=== PATIENT | male | born 1960 | race Asian ===

== ENCOUNTER 2020-09-28 11:13 | Outpatient (REF) | payer OTHER, SELFPAY ==
[2020-09-28 13:55] LABS: MANUAL DIFF FLAG NO
[2020-09-28 14:19] LABS: Basophils Percent Auto 0.2 % (0-2); Eosinophils Absolute Auto 0.4 X10*3/uL (0.0-0.4); Hematocrit 43.3 % (42-52); Imm Gran Abs Auto 0.03 X10*3/uL (0.00-0.03); Imm Gran Pct Auto 0.3 % (0.0-0.4); Lymphocytes Absolute Auto 2.7 X10*3/uL (1.2-4.9); Lymphocytes Percent Auto 29.7 % (20-40); Mean Corpuscular HGB Conc 32.3 g/dl (31.0-36.0); Mean Corpuscular Hemoglobin 26.8 pg (27.0-33.0); Mean Platelet Volume 11.9 fL (9.4-12.4); Monocytes Absolute Auto 0.9 X10*3/uL (0.1-1.2); Monocytes Percent Auto 10.3 % (2-11); Neutrophils Percent Auto 55.5 % (45-73); Platelet Count 263 X10*3/uL (160-400); Red Blood Count 5.22 X10*6/uL (4.60-5.80); White Blood Count 9.1 X10*3/uL (4.8-10.8)
[2020-09-28 14:23] LABS: Alanine Aminotransferase 25 U/L (0-40); Albumin Level 4.3 g/dL (3.5-5.0); Alkaline Phosphatase 101 U/L (39-117); Anion Gap 15 (12-20); Aspartate Amino Transferase 18 U/L (5-37); Bilirubin Total 0.3 mg/dL (0.0-1.0); Blood Urea Nitrogen 19 mg/dL (9-16); Carbon Dioxide 22 mmol/L (22-29); Chloride 105 mmol/L (96-108); Cholesterol 130 mg/dL; Estimated Glomerular Filt Rate > 60; Glucose Fasting 103 mg/dL (60-99); HDL Cholesterol 34 mg/dL; LDL Cholesterol Calculated 73 mg/dl; Potassium 4.6 mmol/L (3.3-5.1); Sodium 137 mmol/L (135-145); Total Protein 7.5 g/dL (6.5-8.0); Triglycerides 118 mg/dL
[2020-09-28 14:45] LABS: Thyroid Stimulating Hormone 3.51 uIU/mL (0.32-4.0)
== END 2020-09-28 11:14 | disposition home or self-care (01) ==
LOC: HO.HMGCLDS 11:13
PROVIDERS: PCP Internal Medicine; Visit Provider Internal Medicine
DX: Z00.00 Encounter for general adult medical examination without abnormal findings (principal); E03.9 Hypothyroidism, unspecified; E11.9 Type 2 diabetes mellitus without complications
CPT/HCPCS: 36415; 80053; 80061; 84443; 85025

== ENCOUNTER → 2020-09-30 10:57 | Outpatient (BNVA) | payer OTHER, SELFPAY | PROVIDERS: PCP Internal Medicine; Visit Provider Internal Medicine Cardiovascular Disease | DX: Z03.89 Encounter for observation for other suspected diseases and conditions ruled out (principal) | CPT/HCPCS: 93005; 99202 ==

== ENCOUNTER → 2021-02-21 13:05 | Outpatient (REF) | payer OTHER, SELFPAY ==
--- NOTE | 2021-02-21 13:08 | CA_ITS ---
Transthoracic Echocardiogram Patient (Last, First, Middle): Micky Carr, Gender: Male Date of : 1960 Age: 60 Procedure Date: 02/21/2021 Procedure Type: Transthoracic Echocardiogram Location: OP Height: 177.8 cm Weight: 99.79 kg BSA: 2.17 m2 Heart Rate: bpm BP: 104 / 56 mmHg Administration Specialist: Referring MD: Marlon Gupta MD Symptoms: Z03.89 - Encounter for observation for other suspected di... Conclusions: - Normal left ventricular size, thickness, and systolic function - E/E prime ratio is between 8 and 15 consistent with indeterminate filling pressures. - The apex segment is akinetic. - Normal right ventricular cavity size and systolic function. Findings Procedure Information The patient receives contrast. Left Ventricle Normal left ventricular size, thickness, and systolic function. The visually estimated ejection fraction is between 55-60%. There is evidence of regional wall motion abnormalities. Abnormal diastolic function is noted. Spectral Doppler is indicative of a pseudonormal filling pattern. E/E prime ratio is between 8 and 15 consistent with indeterminate filling pressures. Wall Motion Rest Echo Findings The apex segment is akinetic. Right Ventricle Normal right ventricular cavity size and systolic function. Atria Both atria are normal in size. Aortic Valve Normal aortic valve structure and function. There is no aortic valve stenosis. There is no aortic valve regurgitation. Mitral Valve Normal mitral valve structure and function. There is no mitral valve regurgitation. There is no mitral valve stenosis. Pulmonic Valve Normal pulmonic valve structure and function. There is no pulmonic valve regurgitation. Tricuspid Valve Normal tricuspid valve structure and function. There is trace tricuspid valve regurgitation. Normal right atrial pressure. There is no evidence of pulmonary hypertension. Great Vessels All visible segments of the aorta are normal in size. The visualized portions of the pulmonary artery and branches are normal. Venous The inferior vena cava is normal in size and collapses greater than 50% with inspiration. Pericardium/Pleural There is no evidence of pericardial effusion. Prior Study Comparison No prior study available for comparison. Measurements 2D Linear Measurements RVIDd: 3.05 RVIDd Index: 1.41 IVSd: 0.84 0.6-0.9/0.6-1.0 cm LVIDd: 5.36 3.9-5.3/4.2-5.9 cm LVIDd Index: 2.47 2.4-3.2/2.2-3.1 cm/m2 LVIDs: 3.37 2.0-3.6 cm LVPWd: 1.19 0.7-1.1 cm Ao Root: 2.90 2.1-3.5 cm LA Diam: 3.90 2.7-3.8/3.0-4.0 cm LAIDs Index: 1.80 1.5-2.3 cm/m2 LV Mass: 259.24 67-162/88-224 g LV Mass Index: 119.46 43-95/49-115 g/m2 LVOT Diam: 2.00 3.0+(-)1.3 cm 2D Systolic Function EF 4C: 62.10 >55% EF 2C: 68.60 >55% Mitral Valve MV Pk E: 0.92 MV PK A: 0.52 MV Decel Time: 257.00 E/A: 1.80 E'Lateral: 8.59 E'Medial: 6.09 E/E' Med: 15.10 E/E' Lat: 10.70 Aortic Valve AoV Pk Corky: 1.51 AoV Mn Corky: 0.98 AoV VTI: 0.35 AoV Pk Grad: 9.00 Aov Mn Grad: 4.00 RIGOBERTO Cont.VTI: 2.47 LVOT LVOT Pk Corky: 1.06 LVOT Mn Corky: 0.76 LVOT VTI: 0.28 LVOT Pk Grad: 4.00 LVOT Mn Grad: 3.00 LVOT Diam: 2.00 LVOT Area: 3.14 Diastolic Function MV Pk E: 0.92 MV Pk A: 0.52 E/A: 1.80 E'Medial: 6.09 E/E' Med: 15.10 E' Laterial: 8.59 E/E' Lat: 10.70 Right Ventricle TAPSE (mm): 24.00 TVS' Corky: 10.40 Tricuspid Valve TR Pk Corky: 2.50 TR Pk Grad: 25.00 RA Press: 3.00 RVSP: 28.00 Great Vessels Aorta Ao Root-2D: 2.90 2.0-3.7 cm Ao Asc: 3.00 2.1-3.4 cm Ao Arch: 2.50 Updated in Other Vendor System with Status of Final Marlon Gupta MD electronically signed on 02/22/2021 2:07:11 PM with status of Final
== END ==
LOC: HO.CARD 13:05
PROVIDERS: PCP Internal Medicine; Visit Provider Internal Medicine Cardiovascular Disease
DX: Z03.89 Encounter for observation for other suspected diseases and conditions ruled out (principal)
CPT/HCPCS: 93306; Q9957

== ENCOUNTER 2021-02-26 10:49 | Outpatient (REF) | payer OTHER, SELFPAY ==
[2021-02-26 11:17] LABS: MANUAL DIFF FLAG NO
[2021-02-26 11:20] LABS: Basophils Percent Auto 0.1 % (0-2); Eosinophils Absolute Auto 0.3 X10*3/uL (0.0-0.4); Eosinophils Percent Auto 3.4 % (0-4); Hematocrit 40.7 % (42-52); Hemoglobin 13.4 g/dl (14.0-18.0); Imm Gran Abs Auto 0.03 X10*3/uL (0.00-0.03); Imm Gran Pct Auto 0.3 % (0.0-0.4); Lymphocytes Absolute Auto 2.7 X10*3/uL (1.2-4.9); Lymphocytes Percent Auto 30.9 % (20-40); Mean Corpuscular HGB Conc 32.9 g/dl (31.0-36.0); Mean Corpuscular Hemoglobin 26.8 pg (27.0-33.0); Mean Corpuscular Volume 81.4 fL (80-98); Mean Platelet Volume 10.9 fL (9.4-12.4); Monocytes Percent Auto 11.8 % (2-11); Neutrophils Absolute Auto 4.7 X10*3/uL (2.0-8.3); Neutrophils Percent Auto 53.5 % (45-73); Platelet Count 242 X10*3/uL (160-400); Red Cell Distribution Width 13.9 % (11.0-16.0); White Blood Count 8.8 X10*3/uL (4.8-10.8)
[2021-02-26 11:41] LABS: Alanine Aminotransferase 27 U/L (0-40); Albumin Level 4.3 g/dL (3.5-5.0); Alkaline Phosphatase 100 U/L (39-117); Anion Gap 14 (12-20); Aspartate Amino Transferase 21 U/L (5-37); Bilirubin Total 0.3 mg/dL (0.0-1.0); Blood Urea Nitrogen 19 mg/dL (9-16); Calcium 9.7 mg/dL (8.4-10.2); Carbon Dioxide 22 mmol/L (22-29); Chloride 106 mmol/L (96-108); Cholesterol 131 mg/dL; Estimated Glomerular Filt Rate > 60; Glucose Fasting 120 mg/dL (60-99); HDL Cholesterol 32 mg/dL; LDL Cholesterol Calculated 78 mg/dl; Potassium 4.5 mmol/L (3.3-5.1); Sodium 137 mmol/L (135-145); Total Protein 7.6 g/dL (6.5-8.0); Triglycerides 107 mg/dL
== END 2021-02-26 10:50 | disposition home or self-care (01) ==
LOC: HO.LAB 10:49
PROVIDERS: PCP Internal Medicine; Visit Provider Internal Medicine
DX: Z00.00 Encounter for general adult medical examination without abnormal findings (principal); E11.9 Type 2 diabetes mellitus without complications; E03.9 Hypothyroidism, unspecified
CPT/HCPCS: 36415; 80053; 80061; 84443; 85025

== ENCOUNTER → 2021-03-03 12:41 | Outpatient (BNVA) | payer OTHER, SELFPAY | PROVIDERS: PCP Internal Medicine; Visit Provider Internal Medicine Cardiovascular Disease | DX: I25.10 Atherosclerotic heart disease of native coronary artery without angina pectoris (principal) | CPT/HCPCS: 99212 ==

== ENCOUNTER → 2021-10-13 14:33 | Outpatient (BNVA) | payer OTHER, SELFPAY | PROVIDERS: PCP Internal Medicine; Referring Provider Internal Medicine; Visit Provider Internal Medicine Cardiovascular Disease | DX: I25.10 Atherosclerotic heart disease of native coronary artery without angina pectoris (principal); E11.9 Type 2 diabetes mellitus without complications | CPT/HCPCS: 93005; 99212 ==

== ENCOUNTER 2022-04-04 11:19 | Outpatient (REF) | payer OTHER, SELFPAY ==
--- NOTE | ~2022-04-04 | XR_ITS ---
EXAMINATION: XR CERVICAL SPINE CLINICAL INFORMATION: Chronic cervical pain. No injury COMPARISON: None TECHNIQUE: 3 views of the cervical spine were obtained. FINDINGS: There is maintained cervical lordosis. The vertebral heights, alignment and disc heights are normal. The left bridging osteophytes at C2-C3, C4-C5, C5-C6 and C6-C7 disc levels. There is mild tilt of the head to the right side. No fracture or lytic process seen. The craniovertebral junction and the C1-C2 alignment is normal. No acute fracture, dislocation or lytic process seen. The prevertebral soft tissues are normal. XR/XR cervical spine 2V IMPRESSION: 1. Degenerative bridging osteophytes C2-C3, C4-C5, C5-C6 and C6-C7 disc levels. 2. Mild head tilt to the right likely spasm or positional. No acute fracture or dislocation seen.
[2022-04-04 11:32] LABS: MANUAL DIFF FLAG NO
[2022-04-04 12:02] LABS: Basophils Percent Auto 0.4 % (0-2); Eosinophils Absolute Auto 0.3 X10*3/uL (0.0-0.4); Hematocrit 42.5 % (42.0-52.0); Hemoglobin 13.8 g/dl (14.0-18.0); Imm Gran Abs Auto 0.02 X10*3/uL (0.00-0.03); Imm Gran Pct Auto 0.2 % (0.0-0.4); Lymphocytes Absolute Auto 2.8 X10*3/uL (1.2-4.9); Lymphocytes Percent Auto 31.1 % (20-40); Mean Corpuscular HGB Conc 32.5 g/dl (31.0-36.0); Mean Corpuscular Hemoglobin 26.3 pg (27.0-33.0); Mean Corpuscular Volume 81.1 fL (80.0-98.0); Mean Platelet Volume 11.2 fL (9.4-12.4); Neutrophils Absolute Auto 4.8 x10*3/uL (2.0-8.3); Neutrophils Percent Auto 54.3 % (45-73); Platelet Count 235 X10*3/uL (160-400); Red Blood Count 5.24 X10*6/uL (4.60-5.80); Red Cell Distribution Width 14.2 % (11.0-16.0); White Blood Count 8.9 X10*3/uL (4.8-10.8)
[2022-04-04 12:14] LABS: Estimated Average Glucose 140 mg/dL; Hemoglobin A1c % 6.5 %
[2022-04-04 12:39] LABS: Alanine Aminotransferase 28 U/L (0-40); Albumin Level 4.2 g/dL (3.5-5.0); Alkaline Phosphatase 88 U/L (39-117); Anion Gap 14 (12-20); Aspartate Amino Transferase 19 U/L (5-37); Bilirubin Total 0.6 mg/dL (0.0-1.0); Blood Urea Nitrogen 16 mg/dL (9-16); Calcium 9.4 mg/dL (8.4-10.2); Carbon Dioxide 24 mmol/L (22-29); Chloride 103 mmol/L (96-108); Cholesterol 136 mg/dL; Estimated Glomerular Filt Rate > 60; Glucose Fasting 100 mg/dL (60-99); HDL Cholesterol 31 mg/dL; LDL Cholesterol Calculated 80 mg/dl; Potassium 4.4 mmol/L (3.3-5.1); Sodium 137 mmol/L (135-145); Total Protein 7.4 g/dL (6.5-8.0); Triglycerides 128 mg/dL
[2022-04-04 12:54] LABS: Prostate Specific Antigen Scr 0.87 ng/mL (<0.05-4.0); Thyroid Stimulating Hormone 3.97 uIU/mL (0.32-4.0)
== END 2022-04-04 11:20 | disposition home or self-care (01) ==
LOC: HO.LAB 11:19
PROVIDERS: PCP Internal Medicine; Visit Provider Internal Medicine
DX: Z00.00 Encounter for general adult medical examination without abnormal findings (principal); Z12.5 Encounter for screening for malignant neoplasm of prostate; Z13.0 Encounter for screening for diseases of the blood and blood-forming organs and certain disorders involving the immune mechanism; M54.2 Cervicalgia; E11.9 Type 2 diabetes mellitus without complications; E03.9 Hypothyroidism, unspecified; E78.5 Hyperlipidemia, unspecified; I10 Essential (primary) hypertension
CPT/HCPCS: 36415; 72040; 80053; 80061; 83036; 84153; 84443; 85025

== ENCOUNTER → 2022-10-13 14:51 | Outpatient (BNVA) | payer OTHER, SELFPAY | PROVIDERS: PCP Internal Medicine; Visit Provider Nurse Practitioner Family | DX: I25.10 Atherosclerotic heart disease of native coronary artery without angina pectoris (principal); I10 Essential (primary) hypertension; E78.5 Hyperlipidemia, unspecified; R53.83 Other fatigue; Z95.5 Presence of coronary angioplasty implant and graft | CPT/HCPCS: 93005; 99212 ==

== ENCOUNTER → 2023-03-19 09:20 | Outpatient (REF) | payer OTHER, SELFPAY ==
--- NOTE | ~2023-03-19 | NM_ITS ---
EXERCISE MYOCARDIAL PERFUSION STUDY INDICATION: Coronary artery disease, assess for ischemia TECHNIQUE: The patient was brought in for an exercise perfusion study on 03/19/2023. Patient performed exercise as per Gary protocol and was injected 35 mCi of sestamibi once target heart rate was achieved. Images were obtained using the SPECT gamma camera interlaced with the gating device. Images were obtained in supine position. Resting perfusion study was performed on 03/21/2023. Patient was administered 35 mCi of sestamibi intravenously at rest. Images were then obtained in supine position. Images were processed with the software and compared side to side in short axis, horizontal long axis and vertical long axis views. Total DLP 127mGy-cm. FINDINGS: Raw images were reviewed. The stress perfusion study showed diminished tracer uptake along the mid to distal anterior wall and adjacent apex. The gated study shows normal LV systolic function with calculated LVEF of 59%. LV cavity is normal in size. The gated study shows reduced contractility in the mid to distal part of anterior wall, apex. Resting study shows diminished tracer uptake in the mid to distal anterior wall, adjacent apex, similar to the stress acquisition. No significant change with CT attenuation correction. Gating at rest reveals similar wall motion abnormality as in stress acquisition. The findings are consistent with fixed perfusion defect in the mid to distal anterior wall and adjacent apex. No clear reversible defects. NM/NM cardiolite stress test IMPRESSION: 1. Myocardial perfusion imaging study shows prior LAD territory infarction including the mid to distal anterior wall, apex. 2. Gated LVEF is 59% during stress and 58% during rest. 3. Transient ischemic dilatation not present. EKG component of the test reported separately.
--- NOTE | 2023-03-19 10:22 | CA_ITS ---
Acquisition Time: 2023-03-19 10:26:17 Total Exercise Time: 00:10:00 Test Indications: CAD Medications: SEE H Protocol: SUSANA Max HR: 139 BPM 86% of Pred: 160 BPM Max BP: 134/070 mmHG Max Work Load: 11.7 METS Exercise stress test exercise 10 min of susana protocol achieving 85% MPHR, with mild ot moderate SOB, no chest discomfort, with isolated PACs and PVC, with normotensive response to exercise, with horizonal/downslope depression leads 2, 3, aVF, v4-v6. Breathing returned to normal with rest. Nuclear images pending. Test reviewed with Dr. Gupta. Referred By: Miguelina Brooks Overread By: Yue Baker
[2023-03-19 10:47] LABS: Alanine Aminotransferase 22 U/L (0-40); Albumin Level 4.1 g/dL (3.5-5.0); Alkaline Phosphatase 94 U/L (39-117); Anion Gap 11 (12-20); Aspartate Amino Transferase 18 U/L (5-37); Bilirubin Total 0.5 mg/dL (0.0-1.0); Blood Urea Nitrogen 16 mg/dL (9-16); Calcium 9.5 mg/dL (8.4-10.2); Carbon Dioxide 25 mmol/L (22-29); Chloride 104 mmol/L (96-108); Cholesterol 114 mg/dL (<200); Estimated Glomerular Filt Rate > 60; Glucose Random 158 mg/dL (60-115); HDL Cholesterol 31 mg/dL (>40); LDL Cholesterol Calculated 58 mg/dL (<100); Sodium 136 mmol/L (135-145); Total Protein 7.4 g/dL (6.5-8.0); Triglycerides 126 mg/dL (<150)
--- NOTE | 2023-03-19 10:49 | CA_ITS ---
Transthoracic Echocardiogram Patient (Last, First, Middle): Micky Carr, Gender: Male Date of : 1960 Age: 62 Procedure Date: 03/19/2023 Procedure Type: Transthoracic Echocardiogram Location: OP Height: 177.8 cm Weight: 90.01 kg BSA: 2.08 m2 Heart Rate: bpm BP: 124 / 80 mmHg Binding Folder Machine: Referring MD: Marlon Gupta MD Racecourse Barrier Attendant: Marlon Gupta MD Symptoms: I25.10 - Atherosclerotic heart disease of [place] coronary artery without... Study Quality: Adequate w Contrast ECG Rhythm: Sinus Conclusions: - Normal left ventricular cavity size. There is mildly increased left ventricular wall thickness. The left ventricular systolic function is low normal. The visually estimated ejection fraction is between 50-55%. - The apex segment is akinetic. - Normal right ventricular cavity size and systolic function. - The left atrium is mildly dilated. Findings Left Ventricle Normal left ventricular cavity size. There is mildly increased left ventricular wall thickness. The left ventricular systolic function is low normal. The visually estimated ejection fraction is between 50-55%. There is evidence of regional wall motion abnormalities. Abnormal diastolic function is noted. Spectral Doppler is indicative of an impaired relaxation filling pattern. E/E prime ratio is between 8 and 15 consistent with indeterminate filling pressures. Wall Motion Rest Echo Findings The apex segment is akinetic. Right Ventricle Normal right ventricular cavity size and systolic function. Atria The left atrium is mildly dilated. The right atrium is normal in size. Aortic Valve Normal aortic valve structure and function. There is no aortic valve stenosis. There is no aortic valve regurgitation. Mitral Valve The mitral valve appears normal. There is no mitral valve regurgitation. There is no mitral valve stenosis. Pulmonic Valve The pulmonic valve is likely normal. Tricuspid Valve Normal tricuspid valve structure. There is trace tricuspid valve regurgitation. Normal right atrial pressure. There is no evidence of pulmonary hypertension. Great Vessels All visible segments of the aorta are normal in size. The visualized portions of the pulmonary artery and branches are normal. Venous The inferior vena cava is normal in size and collapses greater than 50% with inspiration. Pericardium/Pleural There is no evidence of pericardial effusion. Prior Study Comparison Changes noted compared to prior study dated: 02/21/2021. LVEF 50-55% (low normal), mild LA dilation. Measurements 2D Linear Measurements IVSd: 1.11 0.6-0.9/0.6-1.0 cm LVIDd: 4.43 3.9-5.3/4.2-5.9 cm LVIDd Index: 2.13 2.4-3.2/2.2-3.1 cm/m2 LVIDs: 2.84 2.0-3.6 cm LVPWd: 1.10 0.7-1.1 cm Ao Root: 3.80 2.1-3.5 cm LA Diam: 4.00 2.7-3.8/3.0-4.0 cm LAIDs Index: 1.92 1.5-2.3 cm/m2 LV Mass: 214.05 67-162/88-224 g LV Mass Index: 102.91 43-95/49-115 g/m2 LVOT Diam: 2.20 3.0+(-)1.3 cm 2D Systolic Function EF 4C: 46.60 >55% EF 2C: 50.10 >55% EF BiP: 50.10 >55% Mitral Valve MV Pk E: 0.74 MV PK A: 0.88 MV Decel Time: 192.00 E/A: 0.80 E'Lateral: 6.74 E'Medial: 5.98 E/E' Med: 12.30 E/E' Lat: 10.90 PHT: 56.00 MVA PHT: 3.93 Decel Randolph: 3.83 Aortic Valve AoV Pk Corky: 1.35 AoV Mn Corky: 0.90 AoV VTI: 0.31 AoV Pk Grad: 7.00 Aov Mn Grad: 4.00 RIGOBERTO Cont.VTI: 3.02 LVOT LVOT Pk Corky: 1.20 LVOT Mn Corky: 0.78 LVOT VTI: 0.25 LVOT Pk Grad: 6.00 LVOT Mn Grad: 3.00 LVOT Diam: 2.20 LVOT Area: 3.80 Diastolic Function MV Pk E: 0.74 MV Pk A: 0.88 E/A: 0.80 E'Medial: 5.98 E/E' Med: 12.30 E' Laterial: 6.74 E/E' Lat: 10.90 Right Ventricle TAPSE (mm): 26.00 TVS' Corky: 12.00 Tricuspid Valve TR Pk Corky: 1.78 TR Pk Grad: 13.00 RA Press: 3.00 RVSP: 16.00 Great Vessels Aorta Ao Root-2D: 3.80 2.0-3.7 cm Ao Asc: 3.00 2.1-3.4 cm Pulmonary Valve PV Pk Corky: 0.83 Peak PV Grad: 3.00 Updated in Other Vendor System with Status of Final Marlon Gupta MD electronically signed on 03/20/2023 12:17:42 PM with status of Final
== END ==
LOC: HO.CARD 09:20
PROVIDERS: PCP Internal Medicine; Visit Provider Nurse Practitioner Family
DX: I25.10 Atherosclerotic heart disease of native coronary artery without angina pectoris (principal); I10 Essential (primary) hypertension; E78.5 Hyperlipidemia, unspecified; R53.83 Other fatigue; Z95.5 Presence of coronary angioplasty implant and graft
CPT/HCPCS: 36415; 78452; 80053; 80061; 93017; 93306; A9500; Q9957

== ENCOUNTER → 2023-03-19 10:22 | Outpatient (BNV) | payer OTHER, SELFPAY | PROVIDERS: PCP Internal Medicine; Visit Provider Nurse Practitioner | DX: I25.10 Atherosclerotic heart disease of native coronary artery without angina pectoris (principal) | CPT/HCPCS: 78452; 93016; 93018; 93306 ==

== ENCOUNTER 2023-03-20 11:28 | Outpatient (AMB) | payer OTHER, SELFPAY ==
[2023-03-20 11:32] VITALS: BP 106/62; PULSE 54; O2SAT 98; BMI 29.8
--- NOTE | 2023-03-20 11:32 | A.OFFPC_ITS ---
Vital Signs 03/20/23 11:32 Height 5 ft 10 in Weight 208 lb BMI 29.8 BP 106/62 Blood Pressure Location Lt brachial Position Sitting Pulse 54 Pulse Source Pulse Oximeter Pulse Oximetry (%) 98 Oxygen Delivery Method Room Air Intake Visit Reasons: Medication F/U Scrum Coach: Not Required per policy Accompanied by: Self / Same As Patient Allergies No Known Allergies Allergy (Verified 03/20/23 11:32) Tobacco use date assessed: 03/20/23 Dental Screening Dental Screen Date: 03/20/23 Did you have a dental visit in the last 12 months?: Yes Did you have a dental problem in the last 6 months where you did not have access to dental care?: No Was dental information given to patient?: Patient has dentist HPI Medication F/U HPI Details hyperlipidemia asthma and DM; started on metformin PFSH Medical History Obesity CAD (coronary atherosclerotic disease) Coronary artery disease (CAD) excluded Surgical History History of coronary artery stent placement Family History Mother No problems noted. Father No problems noted. Social History Housing: House Alcohol intake: never Patient Tobacco Use Status: Never used Tobacco e-Cigarette/Vaping Use: Never Used Second Hand Smoke Exposure: No service: No Current occupational status: employed Cognitive needs: No Hearing needs: No Vision needs: No Questionnaire PHQ-9 Over the last 2 weeks, how often have you been bothered by any of the following problems? 1. Little interest or pleasure in doing things: not at all 2. Feeling down, depressed, or hopeless: not at all 3. Trouble falling or staying asleep, or sleeping too much: not at all 4. Feeling tired or having little energy: not at all 5. Poor appetite or overeating: not at all 6. Feeling bad about yourself - or that you are a failure or have let yourself or your family down: not at all 7. Trouble concentrating on things, such as reading the newspaper or watching television: not at all 8. Moving or speaking so slowly that other people could have noticed. Or the opposite - being so fidgety or restless that you have been moving around a lot more than usual: not at all 9. Thoughts that you would be better off or of hurting yourself in some way: not at all Total score: 0 Source: Developed by Drs. John Vital, Sindy Saxena, Faustino Sorto and colleagues, with an educational chuy from [employer]. Thrive Questionnaire Date Thrive assessed: 03/20/23 I am a: Patient What is your living situation today?: I have a steady place to live Within the past 12 months, did the food you bought not last and you didn't have the money to get more?: Never true Within the past 12 months, did you worry whether your food would run out before you got money to buy more?: Never true Do you have trouble paying for medicines?: No Do you have trouble getting transportation to medical appointments?: No Do you have trouble paying your heating and electricity bill?: No Do you have trouble taking care of your child, family member or friend?: No Do you have trouble with day-to-day activities such as bathing, preparing meals, shopping, managing finances, etc.?: No Are you currently unemployed and looking for a job?: No Are you interested in more education?: No Please select the resources that you would like help with: None AUDIT C Alcohol Use Questionnaire (AUDIT-C) 1. How often do you have a drink containing alcohol?: Never Total Score: 0 Score Reviewed/Action Taken: Yes MARLENY-7 AMB Questionnaire MARLENY-7 Date MARLENY - 7 assessed: 03/20/23 Feeling nervous, anxious, or on edge: 0 = Not at all Not being able to stop or control worryin = Not at all Worrying too much about different things: 0 = Not at all Trouble relaxin = Not at all Being so restless that it is hard to sit still: 0 = Not at all Becoming easily annoyed or irritable: 0 = Not at all Feeling afraid as if something awful might happen: 0 = Not at all Total MARLENY-7 score (0-4 normal; 5-9 mild; 10-14 moderate; 15-21 severe): 0 Source: Developed by Drs. John Vital, Sindy Saxena, Faustino Sorto and colleagues, with an educational chuy from [employer]. Review of Systems Const Denies chills, Denies headache(s) and Denies weight loss ENT Denies headache(s) Card Denies chest pain, Denies syncope, Denies irregular heart rhythm and Denies dyspnea Resp Denies chest congestion, Denies cough and Denies dyspnea GI Denies abdominal pain, Denies change in stool character, Denies nausea and Denies vomiting Musc Denies deformity and Denies joint swelling Neuro Denies syncope and Denies headache(s) Physical exam (Primary Care) Vital Signs: Last Vital Signs Pulse 54 03/20/23 11:32 BP 106/62 03/20/23 11:32 Pulse Ox 98 03/20/23 11:32 Oxygen Delivery Method Room Air 03/20/23 11:32 BMI result Body Mass Index 29.8 Tobacco/Smoking Status: Tobacco use Status Tobacco use date assessed 03/20/23 03/20/23 11:36 Patient Tobacco Use Status Never used Tobacco 03/20/23 11:36 e-Cigarette/Vaping Use Never Used 03/20/23 11:36 PHQ-9: PHQ-9 Score PHQ-9: Total score 0 03/20/23 11:49 Thrive Assessment: Date of Thrive Assessment Date Thrive assessed 03/20/23 03/20/23 11:36 Const General: cooperative, comfortable, no acute distress and alert Neck Neck: Yes no lymphadenopathy Thyroid: Thyroid normal Resp Effort & Inspection: normal respiratory effort Auscultation: clear to auscultation bilaterally Percussion: percussion normal Cardio Jugular venous distension: no JVD Palpation: normal PMI Rate: regular rate Rhythm: regular rhythm Heart sounds: S1 normal heart sound present and S2 normal heart sound present GI Inspection: Yes normal to inspection Palpation (GI): No hepatosplenomegaly present Skin General skin exam: no rashes or lesions noted Extrem General: Yes no clubbing, cyanosis or edema Assessment and Plan Assessment & Plan (1) Hyperlipidemia: Code(s): E78.5 - Hyperlipidemia, unspecified Plan: stable; same rx (2) Asthma: Code(s): J45.909 - Unspecified asthma, uncomplicated Plan: stable; same rx (3) Type 2 diabetes mellitus with hyperlipidemia: Code(s): E11.69 - Type 2 diabetes mellitus with other specified complication; E78.5 - Hyperlipidemia, unspecified Plan: do labs Orders: Orders Thyroid Stimulating Hormone Today E03.9 - Hypothyroidism, unspecified Hemoglobin A1c Today R73.9 - Hyperglycemia, unspecified Comprehensive [place]. Panel Fast Today N28.9 - Disorder of kidney and ureter, unspecified Lipid Panel Today E78.5 - Hyperlipidemia, unspecified Complete Blood Count Auto Diff Today D64.9 - Anemia, unspecified Microalbumin, Random (w Creat) Today E11.69 - Type 2 diabetes mellitus with other specified complication, E66.01 - Morbid (severe) obesity due to excess calories Referrals Ear/Nose/Throat Referral H92.09 - Otalgia, unspecified ear Medications: New metformin 500 mg PO DAILY 90 tabs 8RF omeprazole 20 mg PO DAILY 90 tabs 8RF clotrimazole-betamethasone 1-0.05 % 1 appl topical BID 45 grams 0RF 2 weeks Coding Level of Care Code Est Pt Level 4 (61984) Diagnoses Hyperlipidemia E78.5 Asthma J45.909 Type 2 diabetes mellitus with hyperlipidemia E11.69; E78.5
== END 2023-03-20 11:52 | disposition home or self-care (01) ==
PROVIDERS: PCP Internal Medicine; Visit Provider Internal Medicine
DX: E78.5 Hyperlipidemia, unspecified (principal); J45.909 Unspecified asthma, uncomplicated; E11.69 Type 2 diabetes mellitus with other specified complication
CPT/HCPCS: 99214

== ENCOUNTER 2023-09-26 12:43 | Outpatient (AMB) | payer OTHER, SELFPAY ==
[2023-09-26 12:50] VITALS: BP 130/60; PULSE 47; BMI 30.8
--- NOTE | 2023-09-26 12:50 | A.OFFVIS_ITS ---
Intake Vital Signs 09/26/23 12:50 Height 5 ft 10 in Weight 214 lb 11.684 oz BMI 30.8 BP 130/60 Blood Pressure Location Lt brachial Position Sitting Pulse 47 L Intake Visit Reasons: f/up Intake Note: pt states that he its doing fine Roll Weigher Required: No Accompanied by: Self / Same As Patient Allergies No Known Allergies Allergy (Verified 03/20/23 11:32) Medication List - Last Reconciled 09/27/23 by Marlon Gupta MD aspirin (Adult Low Dose Aspirin) 81 mg PO DAILY 90 days atorvastatin 80 mg PO DAILY bisoprolol fumarate 5 mg PO DAILY 90 days budesonide-formoterol 160-4.5 mcg/actuation (Symbicort) 2 puffs inhalation BID budesonide-formoterol 160-4.5 mcg/actuation (Symbicort) 2 puffs inhalation BID candesartan 16 mg PO DAILY clotrimazole-betamethasone 1-0.05 % 1 appl topical BID 2 weeks metformin 500 mg PO DAILY yvttmzou-jwzsht-HE-thonzonium 3.3-3-10-0.5 mg/mL (Cortisporin-TC) 1 appl otic (ears) Q4H omeprazole 20 mg PO DAILY spironolactone 25 mg PO DAILY triamcinolone acetonide 0.5% 1 appl topical TID HPI HPI Comments History of Present Illness Details Pleasant 63-year-old gentleman who is here for f/u. In 2016 while he was in [place] he had chest pain and was taken for cardiac catheterization. He said he was initially given streptokinase but continued to have chest pain and was taken emergently for cardiac catheterization and had stent placed to the left anterior descending artery. We do not have exact details of the stent size and location of the stent. He said his ejection fraction at that time was 50% he was told that the cardiac apex does not move well. He since then has been doing well. He has been active without any symptoms. He walks daily without exertional issues in particular no chest discomfort shortness of breath. He was started on Atacand, spironolactone and bisoprolol and has been regularly taking medications. He is on Lipitor 80 mg once a day. He returns for follow-up and is complaining of some upper back achiness. This happens when he does not get enough sleep and when he is working. He is asking whether Lipitor is the cause for that. I have reassured him that Lipitor is unlikely to be the reason for his backaches. 09/26/2023: He returns for follow-up. Rochelle de la rosa is saying that he is walking 2 times a week and has no exertional complaints. He is planning to start swimming. He has been getting yearly stress test in [place] and last 1 was in June where he was able to exercise for 10 minutes on treadmill without any significant symptoms. He is complaining of some fatigue. He has slowed down somewhat during winter time but will be starting some exercise. [facility] Medical History Obesity CAD (coronary atherosclerotic disease) Coronary artery disease (CAD) excluded Surgical History History of coronary artery stent placement Family History Mother No problems noted. Father No problems noted. Social History Housing: House Alcohol intake: never Patient Tobacco Use Status: Never used Tobacco e-Cigarette/Vaping Use: Never Used Second Hand Smoke Exposure: No service: No Current occupational status: employed Cognitive needs: No Hearing needs: No Vision needs: No Review of Systems Const Denies chills, Denies fatigue, Denies fever(s), Denies frequent falls, Denies weakness, Denies weight gain and Denies weight loss ENT Denies dizziness Card Denies chest pain, Denies leg edema, Denies lightheadedness, Denies palpitations, Denies dyspnea and Denies dyspnea on exertion Resp Denies cough, Denies dyspnea and Denies dyspnea on exertion GI Denies hematochezia Musc Denies abnormal gait, Denies muscle weakness, Denies numbness, Denies radiating pain into limb and Denies tingling Neuro Denies abnormal gait, Denies dizziness, Denies frequent falls, Denies numbness, Denies tingling and Denies weakness Endo Denies fatigue and Denies palpitations Physical Exam Vital Signs: Last Vital Signs Pulse 47 L 09/26/23 12:50 BP 130/60 09/26/23 12:50 BMI result Body Mass Index 30.8 GENERAL APPEARANCE: in no acute distress, well developed, well nourished. NECK/THYROID: no carotid bruit, no jugular venous distention. SKIN: no suspicious lesions, warm and dry. HEART: no murmurs, regular rate and rhythm, S1, S2 normal. Bradycardic. LUNGS: clear to auscultation bilaterally. ABDOMEN: normal, bowel sounds present, soft, nontender, nondistended. EXTREMITIES: no clubbing, cyanosis, or edema. PERIPHERAL PULSES: equal. NEUROLOGIC: nonfocal, alert and oriented. PSYCH: mood/affect full range. Office Procedures EKG Details: sinus bradycardia 47/min, anteroseptal infarct, QTc 385 msec. [id number], Complete Assessment & Plan Assessment & Plan (1) CAD (coronary atherosclerotic disease): Code(s): I25.10 - Atherosclerotic heart disease of [place] coronary artery without angina pectoris (2) Stable angina: Code(s): I20.89 - Other forms of angina pectoris Plan Pleasant 63 year gentleman presenting for follow-up. He has background history of LAD PCI in 2016 for acute OR. He has been doing well since then. No exertional symptoms. Denying chest discomfort. His main complaint is fatigue. He is somewhat bradycardic on bisoprolol but has no dizziness or hypotension. This could be 1 potential reason for fatigued but he also has slowed down over the summertime and quite frequently this deconditioning age enough to give fatigue and shortness of breath. In any case we will arrange a exercise stress test for him in the coming months because his quite anxious that his fatigue is related with coronary disease. No changes in medications otherwise. Thank you for allowing me to participate in the care of your patient. Please fe el free to contact me if you have any questions. Orders: Orders CA stress test Today I25.10 - Atherosclerotic heart disease of [place] coronary artery without angina pectoris Coding Level of Care Code Est Pt Level 4 (92676) Diagnoses CAD (coronary atherosclerotic disease) I25.10 Stable angina I20.89 CPT Codes EKG - CPT: 37096-[id number], Complete ([id number])
== END 2023-09-26 13:32 | disposition home or self-care (01) ==
PROVIDERS: PCP Internal Medicine; Visit Provider Internal Medicine Cardiovascular Disease
DX: I25.10 Atherosclerotic heart disease of native coronary artery without angina pectoris (principal)
CPT/HCPCS: 93010; 99214

== ENCOUNTER → 2023-09-26 12:43 | Outpatient (BNVA) | payer OTHER, SELFPAY | PROVIDERS: PCP Internal Medicine; Visit Provider Internal Medicine Cardiovascular Disease | DX: I25.118 Atherosclerotic heart disease of native coronary artery with other forms of angina pectoris (principal); I10 Essential (primary) hypertension; R00.1 Bradycardia, unspecified; E66.9 Obesity, unspecified; Z68.30 Body mass index [BMI] 30.0-30.9, adult; Z98.890 Other specified postprocedural states; Z95.5 Presence of coronary angioplasty implant and graft | CPT/HCPCS: 93005; 99212 ==

== ENCOUNTER 2023-10-15 10:40 | Outpatient (REF) | payer OTHER, SELFPAY ==
[2023-10-15 11:29] LABS: Basophils Percent Auto 0.3 % (0-2); Eosinophils Absolute Auto 0.4 X10*3/uL (0.0-0.4); Hemoglobin 13.8 g/dl (14.0-18.0); Imm Gran Abs Auto 0.03 X10*3/uL (0.00-0.03); Imm Gran Pct Auto 0.3 % (0.0-0.4); Lymphocytes Absolute Auto 3.6 X10*3/uL (1.2-4.9); Lymphocytes Percent Auto 35.7 % (20-40); MANUAL DIFF FLAG NO; Mean Corpuscular HGB Conc 32.1 g/dl (31.0-36.0); Mean Corpuscular Hemoglobin 26.3 pg (27.0-33.0); Mean Corpuscular Volume 82.1 fL (80.0-98.0); Mean Platelet Volume 11.6 fL (9.4-12.4); Monocytes Absolute Auto 1.3 X10*3/uL (0.1-1.2); Monocytes Percent Auto 12.4 % (2-11); Neutrophils Absolute Auto 4.8 x10*3/uL (2.0-8.3); Neutrophils Percent Auto 47.3 % (45-73); Platelet Count 252 X10*3/uL (160-400); Red Blood Count 5.24 X10*6/uL (4.60-5.80); Red Cell Distribution Width 14.4 % (11.0-16.0); White Blood Count 10.1 X10*3/uL (4.8-10.8)
[2023-10-15 11:45] LABS: Estimated Average Glucose 131 mg/dL; Hemoglobin A1c % 6.2 % (<6.0)
[2023-10-15 12:29] LABS: Creatinine Urine 163.28 mg/dL
[2023-10-15 12:30] LABS: Alanine Aminotransferase 28 U/L (0-40); Albumin Level 4.3 g/dL (3.5-5.0); Alkaline Phosphatase 101 U/L (39-117); Anion Gap 14 (12-20); Aspartate Amino Transferase 26 U/L (5-37); Bilirubin Total 0.5 mg/dL (0.0-1.0); Blood Urea Nitrogen 20 mg/dL (9-16); Calcium 9.9 mg/dL (8.4-10.2); Carbon Dioxide 24 mmol/L (22-29); Chloride 104 mmol/L (96-108); Cholesterol 131 mg/dL (<200); Estimated Glomerular Filt Rate > 60; Glucose Fasting 102 mg/dL (60-99); HDL Cholesterol 31 mg/dL (>40); LDL Cholesterol Calculated 80 mg/dL (<100); Potassium 4.8 mmol/L (3.3-5.1); Sodium 137 mmol/L (135-145); Total Protein 8.1 g/dL (6.5-8.0); Triglycerides 100 mg/dL (<150)
[2023-10-15 12:35] LABS: Thyroid Stimulating Hormone 3.39 uIU/mL (0.32-4.0)
== END 2023-10-15 10:41 | disposition home or self-care (01) ==
LOC: HO.LAB 10:40
PROVIDERS: PCP Internal Medicine; Visit Provider Internal Medicine
DX: E03.9 Hypothyroidism, unspecified (principal); E11.69 Type 2 diabetes mellitus with other specified complication; E66.01 Morbid (severe) obesity due to excess calories; E11.65 Type 2 diabetes mellitus with hyperglycemia; E78.5 Hyperlipidemia, unspecified; N28.9 Disorder of kidney and ureter, unspecified; D64.9 Anemia, unspecified
CPT/HCPCS: 36415; 80053; 80061; 82043; 82570; 83036; 84443; 85025

== ENCOUNTER 2023-10-19 11:31 | Outpatient (AMB) | payer OTHER, SELFPAY ==
[2023-10-19 11:34] VITALS: BP 110/60; PULSE 82; O2SAT 96; BMI 30.1
--- NOTE | 2023-10-19 11:34 | MHC.PC.OV ---
Vital Signs 10/19/23 11:34 Height 5 ft 10 in Weight 210 lb BMI 30.1 BP 110/60 Blood Pressure Location Lt brachial Position Sitting Pulse 82 Pulse Source Pulse Oximeter Pulse Oximetry (%) 96 Oxygen Delivery Method Room Air Intake Visit Reasons: 6mth f/u Document Advisor Required: No Aerodynamics Professor: Not Required per policy Accompanied by: Self / Same As Patient Allergies No Known Allergies Allergy (Verified 10/19/23 11:34) Medication List - Last Reconciled 10/22/23 by Tung Camejo MD aspirin (Adult Low Dose Aspirin) 81 mg PO DAILY 90 days atorvastatin 80 mg PO DAILY bisoprolol fumarate 5 mg PO DAILY 90 days budesonide-formoterol 160-4.5 mcg/actuation (Symbicort) 2 puffs inhalation BID budesonide-formoterol 160-4.5 mcg/actuation (Symbicort) 2 puffs inhalation BID candesartan 16 mg PO DAILY clotrimazole-betamethasone 1-0.05 % 1 appl topical BID 2 weeks flash glucose scanning reader ([place] Appyle Teena 2 [place]) As directed flash glucose sensor (RF ControlsStyle Teena 2 Sensor kit) As directed metformin 500 mg PO DAILY tuqgonof-bwovnk-MG-thonzonium 3.3-3-10-0.5 mg/mL (Cortisporin-TC) 1 appl otic (ears) Q4H omeprazole 20 mg PO DAILY spironolactone 25 mg PO DAILY Tobacco use date assessed: 10/19/23 Dental Screening Dental Screen Date: 10/19/23 Did you have a dental visit in the last 12 months?: Yes Did you have a dental problem in the last 6 months where you did not have access to dental care?: No Was dental information given to patient?: Patient has dentist HPI 6mth f/u HPI Details hyperlip htn and dm; stable on rx and compliant PFSH Medical History Obesity CAD (coronary atherosclerotic disease) Coronary artery disease (CAD) excluded Surgical History History of coronary artery stent placement Family History Mother No problems noted. Father No problems noted. Social History Housing: House Alcohol intake: never Patient Tobacco Use Status: Never used Tobacco e-Cigarette/Vaping Use: Never Used Second Hand Smoke Exposure: No service: No Current occupational status: employed Cognitive needs: No Hearing needs: No Vision needs: No Questionnaire PHQ-9 Over the last 2 weeks, how often have you been bothered by any of the following problems? 1. Little interest or pleasure in doing things: not at all 2. Feeling down, depressed, or hopeless: not at all 3. Trouble falling or staying asleep, or sleeping too much: not at all 4. Feeling tired or having little energy: not at all 5. Poor appetite or overeating: not at all 6. Feeling bad about yourself - or that you are a failure or have let yourself or your family down: not at all 7. Trouble concentrating on things, such as reading the newspaper or watching television: not at all 8. Moving or speaking so slowly that other people could have noticed. Or the opposite - being so fidgety or restless that you have been moving around a lot more than usual: not at all 9. Thoughts that you would be better off or of hurting yourself in some way: not at all Total score: 0 Source: Developed by Drs. John Vital, Sindy Saxena, Faustino Sorto and colleagues, with an educational chuy from [employer] Thrive Questionnaire Date Thrive assessed: 10/19/23 I am a: Patient What is your living situation today?: I have a steady place to live Within the past 12 months, did the food you bought not last and you didn't have the money to get more?: Never true Within the past 12 months, did you worry whether your food would run out before you got money to buy more?: Never true Do you have trouble paying for medicines?: No Do you have trouble getting transportation to medical appointments?: No Do you have trouble paying your heating and electricity bill?: No Do you have trouble taking care of your child, family member or friend?: No Do you have trouble with day-to-day activities such as bathing, preparing meals, shopping, managing finances, etc.?: No Are you currently unemployed and looking for a job?: No Are you interested in more education?: No Please select the resources that you would like help with: None THRIVE Score: 0 AUDIT C Alcohol Use Questionnaire (AUDIT-C) 1. How often do you have a drink containing alcohol?: Never Total Score: 0 Score Reviewed/Action Taken: Yes MARLENY-7 AMB Questionnaire MARLENY-7 Date MARLENY - 7 assessed: 10/19/23 Feeling nervous, anxious, or on edge: 0 = Not at all Not being able to stop or control worryin = Not at all Worrying too much about different things: 0 = Not at all Trouble relaxin = Not at all Being so restless that it is hard to sit still: 0 = Not at all Becoming easily annoyed or irritable: 0 = Not at all Feeling afraid as if something awful might happen: 0 = Not at all Total MARLENY-7 score (0-4 normal; 5-9 mild; 10-14 moderate; 15-21 severe): 0 Source: Developed by Drs. John Vital, Sindy Saxena, Faustino Sorto and colleagues, with an educational chuy from [employer] Review of Systems Const Denies chills, Denies headache(s) and Denies weight loss ENT Denies headache(s) Card Denies chest pain, Denies syncope, Denies irregular heart rhythm and Denies dyspnea Resp Denies chest congestion, Denies cough and Denies dyspnea GI Denies abdominal pain, Denies change in stool character, Denies nausea and Denies vomiting Musc Denies deformity and Denies joint swelling Neuro Denies syncope and Denies headache(s) Physical exam (Primary Care) Vital Signs: Last Vital Signs Pulse 82 10/19/23 11:34 BP 110/60 10/19/23 11:34 Pulse Ox 96 10/19/23 11:34 Oxygen Delivery Method Room Air 10/19/23 11:34 BMI result Body Mass Index 30.1 Tobacco/Smoking Status: Tobacco use Status Tobacco use date assessed 10/19/23 10/19/23 11:37 Patient Tobacco Use Status Never used Tobacco 10/19/23 11:37 e-Cigarette/Vaping Use Never Used 10/19/23 11:37 PHQ-9: PHQ-9 Score PHQ-9: Total score 0 10/19/23 11:41 Thrive Assessment: Date of Thrive Assessment Date Thrive assessed 10/19/23 10/19/23 11:37 Const General: cooperative, comfortable, no acute distress and alert Neck Neck: Yes no lymphadenopathy Thyroid: Thyroid normal Resp Effort & Inspection: normal respiratory effort Auscultation: clear to auscultation bilaterally Percussion: percussion normal Cardio Jugular venous distension: no JVD Palpation: normal PMI Rate: regular rate Rhythm: regular rhythm Heart sounds: S1 normal heart sound present and S2 normal heart sound present GI Inspection: Yes normal to inspection Palpation (GI): No hepatosplenomegaly present Skin General skin exam: no rashes or lesions noted Extrem General: Yes no clubbing, cyanosis or edema Assessment and Plan Assessment & Plan (1) Type 2 diabetes mellitus with hyperlipidemia: Code(s): E11.69 - Type 2 diabetes mellitus with other specified complication; E78.5 - Hyperlipidemia, unspecified Plan: stable; same rx (2) Hypertension: Code(s): I10 - Essential (primary) hypertension Plan: stable; same rx (3) Hyperlipidemia: Code(s): E78.5 - Hyperlipidemia, unspecified Plan: stable; same rx Orders: Orders Lipid Panel Today Z13.220 - Encounter for screening for lipoid disorders Microalbumin, Random (w Creat) Today E11.69 - Type 2 diabetes mellitus with other specified complication, E66.01 - Morbid (severe) obesity due to excess calories Complete Blood Count Auto Diff Today Z13.0 - Encounter for screening for diseases of the blood and blood-forming organs and certain disorders involving the immune mechanism Comprehensive [place]. Panel Fast Today Z13.9 - Encounter for screening, unspecified Hemoglobin A1c Today R73.9 - Hyperglycemia, unspecified Medications: New flash glucose scanning reader (FreeStyle Teena 2 [place]) As directed 1 ea 0RF flash glucose sensor (FreeStyle Teena 2 Sensor kit) As directed 1 ea 8RF Coding Level of Care Code Est Pt Level 4 (21481) Diagnoses Type 2 diabetes mellitus with hyperlipidemia E11.69; E78.5 Hypertension I10 Hyperlipidemia E78.5
== END 2023-10-19 11:55 | disposition home or self-care (01) ==
PROVIDERS: PCP Internal Medicine; Visit Provider Internal Medicine
DX: E11.69 Type 2 diabetes mellitus with other specified complication (principal); E78.5 Hyperlipidemia, unspecified; I10 Essential (primary) hypertension
CPT/HCPCS: 99214

== ENCOUNTER → 2024-02-25 08:24 | Outpatient (REF) | payer OTHER, SELFPAY ==
--- NOTE | 2024-02-25 08:32 | CA_ITS ---
Acquisition Time: 2024-02-25 08:43:48 Total Exercise Time: 00:09:54 Test Indications: CP Medications: SEE H Protocol: GONSALO Max HR: 126 BPM 79% of Pred: 159 BPM Max BP: 168/060 mmHG Max Work Load: 11.0 METS Exercise stress text exercise 9 min 54 sec of Gonsalo protocol achieving approx 81% MPHR, mild ot moderate SOB, without chest pains, with isoplatated PVC, with depressing leads 1, 2, 3, aVF, V3-V6. Breathing returned to baseline with rest. Test reviewed with Dr. Hilton Referred By: Marlon Gupta Overread By: Yue Baker
[2024-02-25 10:06] LABS: Hematocrit 43.4 % (42.0-52.0); Hemoglobin 14.1 g/dl (14.0-18.0); Mean Corpuscular HGB Conc 32.5 g/dl (31.0-36.0); Mean Corpuscular Hemoglobin 26.5 pg (27.0-33.0); Mean Corpuscular Volume 81.6 fL (80.0-98.0); Mean Platelet Volume 11.6 fL (9.4-12.4); Platelet Count 259 X10*3/uL (160-400); Red Blood Count 5.32 X10*6/uL (4.60-5.80); Red Cell Distribution Width 14.4 % (11.0-16.0); White Blood Count 13.4 X10*3/uL (4.8-10.8)
[2024-02-25 10:25] LABS: Eosinophils Absolute Manual 0.3 X10*3/uL (0.0-0.4); Eosinophils Percent Manual 2 % (0-4); Lymphocytes Absolute Manual 5.9 X10*3/uL (1.2-4.9); Lymphocytes Percent Manual 44 % (20-40); Monocytes Absolute Manual 0.7 X10*3/uL (0.1-1.2); Monocytes Percent Manual 5 % (2-11); Neutrophils Percent Manual 49 % (45-73)
[2024-02-25 10:26] LABS: Burr Cells 1+ (0-2) /OIF; Ovalocytes 1+ (5-14) /OIF; Platelet Estimate NORMAL (NORMAL); Platelet Morphology Comment NORMAL; RBC Morphology NOTED
[2024-02-25 10:53] LABS: Band Neutrophils Percent 0 % (3-5); Neutrophils Absolute Manual 6.6 X10*3/uL (2.0-8.3)
[2024-02-25 11:06] LABS: Estimated Average Glucose 134 mg/dL; Hemoglobin A1c % 6.3 % (<6.0)
[2024-02-25 11:24] LABS: Alanine Aminotransferase 29 U/L (0-40); Albumin Level 4.5 g/dL (3.5-5.0); Alkaline Phosphatase 100 U/L (39-117); Anion Gap 20 (12-20); Aspartate Amino Transferase 21 U/L (5-37); Bilirubin Total 0.6 mg/dL (0.0-1.0); Blood Urea Nitrogen 17 mg/dL (9-16); Calcium 9.8 mg/dL (8.4-10.2); Carbon Dioxide 17 mmol/L (22-29); Chloride 105 mmol/L (96-108); Cholesterol 116 mg/dL (<200); Estimated Glomerular Filt Rate > 60; Glucose Fasting 115 mg/dL (60-99); HDL Cholesterol 33 mg/dL (>40); LDL Cholesterol Calculated 60 mg/dL (<100); Sodium 138 mmol/L (135-145); Triglycerides 115 mg/dL (<150)
[2024-02-25 12:07] LABS: Creatinine Urine 169.78 mg/dL; Microalbum/Creatinine Ratio Ur 23.5 ug/mg cr (<30)
== END ==
LOC: HO.CARD 08:24
PROVIDERS: Absent Provider Internal Medicine; PCP Internal Medicine; Visit Provider Internal Medicine Cardiovascular Disease
DX: Z13.220 Encounter for screening for lipoid disorders (principal); I25.10 Atherosclerotic heart disease of native coronary artery without angina pectoris; E11.69 Type 2 diabetes mellitus with other specified complication; E66.01 Morbid (severe) obesity due to excess calories; E11.65 Type 2 diabetes mellitus with hyperglycemia
CPT/HCPCS: 36415; 80053; 80061; 82043; 82570; 83036; 85007; 85025; 85027; 93017

== ENCOUNTER → 2024-02-25 08:32 | Outpatient (BNV) | payer OTHER, SELFPAY | PROVIDERS: Absent Provider Internal Medicine; PCP Internal Medicine; Visit Provider Nurse Practitioner | DX: R06.02 Shortness of breath (principal); I49.3 Ventricular premature depolarization | CPT/HCPCS: 93016; 93018 ==

== ENCOUNTER 2024-02-27 13:32 | Outpatient (AMB) | payer OTHER, SELFPAY ==
[2024-02-27 13:37] VITALS: BP 110/62; PULSE 53; BMI 30.4
--- NOTE | 2024-02-27 13:37 | MHC.OFFVIS ---
Vital Signs 02/27/24 13:37 Height 5 ft 10 in Weight 211 lb 10.3 oz BMI 30.4 BP 110/62 Blood Pressure Location Lt brachial Position Sitting Pulse 53 Pulse Source Pulse Oximeter Intake Visit Reasons: f/up-per km Intake Note: f/up Deep Fat Cook Fry Required: No Accompanied by: Self / Same As Patient Allergies No Known Allergies Allergy (Verified 10/19/23 11:34) Medication List - Last Reconciled 02/27/24 by Marlon Gupta MD aspirin (Adult Low Dose Aspirin) 81 mg PO DAILY 90 days atorvastatin 80 mg PO DAILY bisoprolol fumarate 5 mg PO DAILY 90 days budesonide-formoterol 160-4.5 mcg/actuation (Symbicort) 2 puffs inhalation BID candesartan 16 mg PO DAILY clotrimazole-betamethasone 1-0.05 % 1 appl topical BID 2 weeks flash glucose scanning reader (FreeStyle Teena 2 [place]) As directed flash glucose sensor (FreeStyle Teena 2 Sensor kit) As directed metformin 500 mg PO DAILY dacfjvjb-kpiaxv-UE-thonzonium 3.3-3-10-0.5 mg/mL (Cortisporin-TC) 1 appl otic (ears) Q4H omeprazole 20 mg PO DAILY spironolactone 25 mg PO DAILY HPI Comments Details: Pleasant 63-year-old gentleman who is here for f/u. In 2016 while he was in [place] he had chest pain and was taken for cardiac catheterization. He said he was initially given streptokinase but continued to have chest pain and was taken emergently for cardiac catheterization and had stent placed to the left anterior descending artery. We do not have exact details of the stent size and location of the stent. He said his ejection fraction at that time was 50% he was told that the cardiac apex does not move well. He since then has been doing well. He has been active without any symptoms. He walks daily without exertional issues in particular no chest discomfort shortness of breath. He was started on Atacand, spironolactone and bisoprolol and has been regularly taking medications. He is on Lipitor 80 mg once a day. He returns for follow-up and is complaining of some upper back achiness. This happens when he does not get enough sleep and when he is working. He is asking whether Lipitor is the cause for that. I have reassured him that Lipitor is unlikely to be the reason for his backaches. 09/26/2023: He returns for follow-up. He is saying that he is walking 2 times a week and has no exertional complaints. He is planning to start swimming. He has been getting yearly stress test in [place] and last 1 was in June where he was able to exercise for 10 minutes on treadmill without any significant symptoms. He is complaining of some fatigue. He has slowed down somewhat during winter time but will be starting some exercise. 02/27/2024: He returns for follow-up. On last visit he was complaining of fatigue and shortness of breath and we did stress testing for him. He underwent exercise stress test where he was able to exercise for 10 minutes and has shortness of breath. No chest discomfort. He had diffuse ST depressions on the EKG. In recovery the EKG improved. He is denying any chest discomfort but does get shortness of breath with activities. REPLACED BY [facility] Medical History Obesity CAD (coronary atherosclerotic disease) Coronary artery disease (CAD) excluded Surgical History History of coronary artery stent placement Family History Mother No problems noted. Father No problems noted. Social History Housing: House Alcohol intake: never Patient Tobacco Use Status: Never used Tobacco e-Cigarette/Vaping Use: Never Used Second Hand Smoke Exposure: No service: No Current occupational status: employed Cognitive needs: No Hearing needs: No Vision needs: No Review of Systems Const Denies chills, Denies fatigue, Denies fever(s), Denies frequent falls, Denies weakness, Denies weight gain and Denies weight loss ENT Denies dizziness Card Denies chest pain, Denies leg edema, Denies lightheadedness, Denies palpitations, Denies dyspnea and Denies dyspnea on exertion Resp Denies cough, Denies dyspnea and Denies dyspnea on exertion GI Denies hematochezia Musc Denies abnormal gait, Denies muscle weakness, Denies numbness, Denies radiating pain into limb and Denies tingling Neuro Denies abnormal gait, Denies dizziness, Denies frequent falls, Denies numbness, Denies tingling and Denies weakness Endo Denies fatigue and Denies palpitations Physical Exam Vital Signs: Last Vital Signs Pulse 53 02/27/24 13:37 BP 110/62 02/27/24 13:37 BMI result Body Mass Index 30.4 GENERAL APPEARANCE: in no acute distress, well developed, well nourished. NECK/THYROID: no carotid bruit, no jugular venous distention. SKIN: no suspicious lesions, warm and dry. HEART: no murmurs, regular rate and rhythm, S1, S2 normal. Bradycardic. LUNGS: clear to auscultation bilaterally. ABDOMEN: normal, bowel sounds present, soft, nontender, nondistended. EXTREMITIES: no clubbing, cyanosis, or edema. PERIPHERAL PULSES: equal. NEUROLOGIC: nonfocal, alert and oriented. PSYCH: mood/affect full range. Assessment & Plan Assessment & Plan (1) Hypertension: Code(s): I10 - Essential (primary) hypertension Category: Medical (2) Stable angina: Code(s): I20.89 - Other forms of angina pectoris Category: Medical (3) Abnormal stress ECG: Code(s): R94.39 - Abnormal result of other cardiovascular function study Category: Medical Plan Pleasant 63 year gentleman who is here for follow-up. He has history of anterior wall CA while he was in [place] few years ago. At that time he had short area of sharp left-sided chest discomfort and went to the emergency department where he was given streptokinase and eventually was taken for cardiac catheterization and had PCI performed. Details of this angioplasty not available. More recently has been experiencing shortness of breath with activities. He underwent stress testing where he had dynamic EKG changes with downsloping ST depressions. I have discussed with him that given his symptoms and known history of coronary disease with previous anatomy unknown about other vessels-may need an anatomic study of his coronary arteries. After discussion we have decided to do a diagnostic angiogram. We will continue same medications for now. Follow-up after angiography. Orders: Orders Cardiac Cath LT Diagnostic Today R94.39 - Abnormal result of other cardiovascular function study Coding Level of Care Code Est Pt Level 4 (95616) Diagnoses Hypertension I10 Stable angina I20.89 Abnormal stress ECG R94.39
== END 2024-02-27 14:40 | disposition home or self-care (01) ==
PROVIDERS: PCP Internal Medicine; Visit Provider Internal Medicine Cardiovascular Disease
DX: I10 Essential (primary) hypertension (principal); I20.89 Other forms of angina pectoris; R94.39 Abnormal result of other cardiovascular function study
CPT/HCPCS: 99214

== ENCOUNTER → 2024-02-27 13:32 | Outpatient (BNVA) | payer OTHER, SELFPAY | PROVIDERS: PCP Internal Medicine; Visit Provider Internal Medicine Cardiovascular Disease | DX: I10 Essential (primary) hypertension (principal); I20.89 Other forms of angina pectoris; R94.39 Abnormal result of other cardiovascular function study | CPT/HCPCS: 99212 ==

== ENCOUNTER 2024-02-28 12:03 | Outpatient (REF) | payer OTHER, SELFPAY ==
[2024-02-28 12:31] LABS: MANUAL DIFF FLAG NO
[2024-02-28 12:41] LABS: Basophils Percent Auto 0.4 % (0-2); Eosinophils Absolute Auto 0.3 X10*3/uL (0.0-0.4); Eosinophils Percent Auto 3.6 % (0-4); Hematocrit 38.9 % (42.0-52.0); Hemoglobin 12.9 g/dl (14.0-18.0); Imm Gran Abs Auto 0.03 X10*3/uL (0.00-0.03); Imm Gran Pct Auto 0.4 % (0.0-0.4); Lymphocytes Absolute Auto 2.6 X10*3/uL (1.2-4.9); Lymphocytes Percent Auto 30.4 % (20-40); Mean Corpuscular HGB Conc 33.2 g/dl (31.0-36.0); Mean Corpuscular Hemoglobin 26.4 pg (27.0-33.0); Mean Corpuscular Volume 79.7 fL (80.0-98.0); Mean Platelet Volume 11.4 fL (9.4-12.4); Monocytes Absolute Auto 0.7 X10*3/uL (0.1-1.2); Monocytes Percent Auto 7.8 % (2-11); Neutrophils Absolute Auto 4.9 x10*3/uL (2.0-8.3); Neutrophils Percent Auto 57.4 % (45-73); Platelet Count 217 X10*3/uL (160-400); Red Blood Count 4.88 X10*6/uL (4.60-5.80); Red Cell Distribution Width 14.5 % (11.0-16.0); White Blood Count 8.4 X10*3/uL (4.8-10.8)
== END 2024-02-28 12:04 | disposition home or self-care (01) ==
LOC: HO.LAB 12:03
PROVIDERS: PCP Internal Medicine; Visit Provider Internal Medicine
DX: Z13.0 Encounter for screening for diseases of the blood and blood-forming organs and certain disorders involving the immune mechanism (principal)
CPT/HCPCS: 36415; 85025

== ENCOUNTER 2024-02-28 12:39 | Outpatient (AMB) | payer OTHER, SELFPAY ==
[2024-02-28 12:50] VITALS: BP 112/64; PULSE 54; O2SAT 94; BMI 30.6
--- NOTE | 2024-02-28 12:50 | MHC.PC.OV ---
Vital Signs 02/28/24 12:50 Height 5 ft 10 in Weight 213 lb BMI 30.6 BP 112/64 Blood Pressure Location Lt brachial Position Sitting Pulse 54 Pulse Source Pulse Oximeter Pulse Oximetry (%) 94 Oxygen Delivery Method Room Air Intake Visit Reasons: 4mt f/u E Commerce Web Developer Required: No Accompanied by: Self / Same As Patient Allergies No Known Allergies Allergy (Verified 02/28/24 12:52) Medication List - Last Reconciled 02/29/24 by Tung Camejo MD aspirin (Adult Low Dose Aspirin) 81 mg PO DAILY 90 days atorvastatin 80 mg PO DAILY bisoprolol fumarate 5 mg PO DAILY 90 days budesonide-formoterol 160-4.5 mcg/actuation (Symbicort) 2 puffs inhalation BID candesartan 16 mg PO DAILY clotrimazole-betamethasone 1-0.05 % 1 appl topical BID 2 weeks flash glucose scanning reader (nCrypted CloudStyle Teena 2 [place]) As directed flash glucose sensor (FreeStyle Teena 2 Sensor kit) As directed metformin 500 mg PO DAILY miinyuts-vhxoxs-EC-thonzonium 3.3-3-10-0.5 mg/mL (Cortisporin-TC) 1 appl otic (ears) Q4H omeprazole 20 mg PO DAILY spironolactone 25 mg PO DAILY Tobacco use date assessed: 10/19/23 Dental Screening Dental Screen Date: 10/19/23 [facility] f/u HPI Details hyperlipidemia on rx; doing well and compliant; seeing cardiology for an abnormal stress test and will be having a coronary angiogram next month [facility] Medical History Obesity CAD (coronary atherosclerotic disease) Coronary artery disease (CAD) excluded Surgical History History of coronary artery stent placement Family History Mother No problems noted. Father No problems noted. Social History Housing: House Alcohol intake: never Patient Tobacco Use Status: Never used Tobacco Tobacco use type: Cigarette e-Cigarette/Vaping Use: Never Used Second Hand Smoke Exposure: No service: No Current occupational status: employed Cognitive needs: No Hearing needs: No Vision needs: No Questionnaire PHQ-9 Over the last 2 weeks, how often have you been bothered by any of the following problems? 1. Little interest or pleasure in doing things: not at all 2. Feeling down, depressed, or hopeless: not at all 3. Trouble falling or staying asleep, or sleeping too much: not at all 4. Feeling tired or having little energy: not at all 5. Poor appetite or overeating: not at all 6. Feeling bad about yourself - or that you are a failure or have let yourself or your family down: not at all 7. Trouble concentrating on things, such as reading the newspaper or watching television: not at all 8. Moving or speaking so slowly that other people could have noticed. Or the opposite - being so fidgety or restless that you have been moving around a lot more than usual: not at all 9. Thoughts that you would be better off or of hurting yourself in some way: not at all Total score: 0 Source: Developed by Drs. John Vital, Sindy Saxena, Faustino Sorto and colleagues, with an educational chuy from [employer] Thrive Questionnaire Date Thrive assessed: 10/19/23 AUDIT C Alcohol Use Questionnaire (AUDIT-C) 1. How often do you have a drink containing alcohol?: Never Total Score: 0 Score Reviewed/Action Taken: Yes MARLENY-7 AMB Questionnaire MARLENY-7 Date MARLENY - 7 assessed: 10/19/23 Source: Developed by Drs. John Vital, Sindy Saxena, Faustino Sorto and colleagues, with an educational chuy from [employer] Review of Systems Const Denies chills, Denies headache(s) and Denies weight loss ENT Denies headache(s) Card Denies chest pain, Denies syncope, Denies irregular heart rhythm and Denies dyspnea Resp Denies chest congestion, Denies cough and Denies dyspnea GI Denies abdominal pain, Denies change in stool character, Denies nausea and Denies vomiting Musc Denies deformity and Denies joint swelling Neuro Denies syncope and Denies headache(s) Physical exam (Primary Care) Vital Signs: Last Vital Signs Pulse 54 02/28/24 12:50 BP 112/64 02/28/24 12:50 Pulse Ox 94 02/28/24 12:50 Oxygen Delivery Method Room Air 02/28/24 12:50 BMI result Body Mass Index 30.6 Tobacco/Smoking Status: Tobacco use Status Tobacco use date assessed 10/19/23 02/28/24 12:56 Patient Tobacco Use Status Never used Tobacco 02/28/24 12:56 Tobacco use type Cigarette 02/28/24 12:56 e-Cigarette/Vaping Use Never Used 02/28/24 12:56 PHQ-9: PHQ-9 Score PHQ-9: Total score 0 02/28/24 12:56 Thrive Assessment: Date of Thrive Assessment Date Thrive assessed 10/19/23 02/28/24 12:56 Const General: cooperative, comfortable, no acute distress and alert Neck Neck: Yes no lymphadenopathy Thyroid: Thyroid normal Resp Effort & Inspection: normal respiratory effort Auscultation: clear to auscultation bilaterally Percussion: percussion normal Cardio Jugular venous distension: no JVD Palpation: normal PMI Rate: regular rate Rhythm: regular rhythm Heart sounds: S1 normal heart sound present and S2 normal heart sound present GI Inspection: Yes normal to inspection Palpation (GI): No hepatosplenomegaly present Skin General skin exam: no rashes or lesions noted Extrem General: Yes no clubbing, cyanosis or edema Assessment and Plan Assessment & Plan (1) Hyperlipidemia: Code(s): E78.5 - Hyperlipidemia, unspecified Plan: stable; same rx Orders: Orders Lipid Panel Today Z13.220 - Encounter for screening for lipoid disorders Referrals Ophthalmology Referral E11.9 - Type 2 diabetes mellitus without complications, Z01.00 - Encounter for examination of eyes and vision without abnormal findings Medications: Refilled aspirin (Adult Low Dose Aspirin) 81 mg PO DAILY 90 days 90 tabs 3RF I25.10 - Atherosclerotic heart disease of [place] coronary artery without angina pectoris bisoprolol fumarate 5 mg PO DAILY 90 days 90 tabs 3RF I25.10 - Atherosclerotic heart disease of [place] coronary artery without angina pectoris Coding Level of Care Code Est Pt Level 3 (42440) Diagnoses Hyperlipidemia E78.5
== END 2024-02-28 13:20 | disposition home or self-care (01) ==
PROVIDERS: PCP Internal Medicine; Visit Provider Internal Medicine
DX: E78.5 Hyperlipidemia, unspecified (principal)
CPT/HCPCS: 99213

== ENCOUNTER → 2024-03-25 23:59 | Outpatient (BNV) | payer OTHER, SELFPAY | PROVIDERS: PCP Internal Medicine; Visit Provider Internal Medicine Cardiovascular Disease | DX: R93.1 Abnormal findings on diagnostic imaging of heart and coronary circulation (principal); I50.9 Heart failure, unspecified | CPT/HCPCS: 93458; 99152 ==

== ENCOUNTER 2024-04-01 13:54 | Outpatient (AMB) | payer OTHER, SELFPAY ==
[2024-04-01 13:56] VITALS: BP 112/60; PULSE 53; BMI 30.9
--- NOTE | 2024-04-01 13:56 | MHC.OFFVIS ---
Vital Signs 04/01/24 13:56 Height 5 ft 10 in Weight 215 lb 2.738 oz BMI 30.9 BP 112/60 Blood Pressure Location Lt brachial Position Sitting Pulse 53 Pulse Source Pulse Oximeter Intake Visit Reasons: overdue cath f/up/ Pt was not able to come in Intake Note: pt is here for a f/up after cath- pt is feeling fine. 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 Accompanied by: Self / Same As Patient Allergies No Known Allergies Allergy (Verified 02/28/24 12:52) Medication List - Last Reconciled 04/01/24 by Miguelina Brooks, [facility] aspirin (Adult Low Dose Aspirin) 81 mg PO DAILY 90 days atorvastatin 80 mg PO DAILY bisoprolol fumarate 5 mg PO DAILY 90 days budesonide-formoterol 160-4.5 mcg/actuation (Symbicort) 2 puffs inhalation BID candesartan 16 mg PO DAILY clotrimazole-betamethasone 1-0.05 % 1 appl topical BID 2 weeks flash glucose scanning reader (Your [employer] Teena 2 [place]) As directed flash glucose sensor ([employer] Teena 2 Sensor kit) As directed metformin 500 mg PO DAILY valrhppt-tsyhvs-RB-thonzonium 3.3-3-10-0.5 mg/mL (Cortisporin-TC) 1 appl otic (ears) Q4H omeprazole 20 mg PO DAILY spironolactone 25 mg PO DAILY HPI HPI overdue cath f/up/ Pt was not able to come in: Details: Micky is a 63 yo male with PMH of HTN, HLD, CAD with LAD stent 2015 who recently had cardiac catheterization and now presents for follow-up. Today he reports that he has been doing well since his last visit in January. He currently has no concerning symptoms. He denies chest discomfort at rest or with activity. No shortness of breath, PND, orthopnea or edema. No presyncope, syncope, falls. Taking medications as directed. Travels between [facility] and [place]. Right radial catheterization site well healed. [facility] Medical History Obesity CAD (coronary atherosclerotic disease) Coronary artery disease (CAD) excluded Surgical History (Updated 04/01/24 @ 17:08 by Miguelina Brooks, [facility]-C) Hx of cardiac cath History of coronary artery stent placement Family History Mother No problems noted. Father No problems noted. Social History Housing: House Alcohol intake: never Patient Tobacco Use Status: Never used Tobacco Tobacco use type: Cigarette e-Cigarette/Vaping Use: Never Used Second Hand Smoke Exposure: No service: No Current occupational status: employed Cognitive needs: No Hearing needs: No Vision needs: No Review of Systems Const All systems reviewed & are unremarkable except as noted in HPI and below Denies chills, Denies fatigue, Denies fever(s), Denies frequent falls, Denies weakness, Denies weight gain and Denies weight loss ENT Denies dizziness Card Denies chest pain, Denies leg edema, Denies lightheadedness, Denies palpitations, Denies dyspnea and Denies dyspnea on exertion Resp Denies cough, Denies dyspnea and Denies dyspnea on exertion GI Denies hematochezia Musc Denies abnormal gait, Denies muscle weakness, Denies numbness, Denies radiating pain into limb and Denies tingling Neuro Denies abnormal gait, Denies dizziness, Denies frequent falls, Denies numbness, Denies tingling and Denies weakness Endo Denies fatigue and Denies palpitations Physical Exam Vital Signs: Last Vital Signs Pulse 53 04/01/24 13:56 BP 112/60 04/01/24 13:56 BMI result Body Mass Index 30.9 Const General: cooperative, healthy appearing, comfortable and no acute distress Orientation/consciousness: patient oriented x3 Neck Neck: Yes normal visual inspection Resp Effort & Inspection: normal respiratory effort Auscultation: clear to auscultation bilaterally, no crackles, no rales, no rhonchi and no wheezes Cardio Jugular venous distension: no JVD Rate: regular rate Rhythm: regular rhythm Heart sounds: S1 normal heart sound present, S2 normal heart sound present, no murmurs and no rubs Neuro General: patient oriented x3 Extrem Other: right radial cath site well healed General: Yes normal to inspection, No no pedal edema and No calf tenderness Psych Appearance: grossly normal Mental Status: mental status grossly normal Speech and movement: Normal speech and movement present Assessment & Plan Assessment & Plan (1) CAD (coronary atherosclerotic disease): Code(s): I25.10 - Atherosclerotic heart disease of [place] coronary artery without angina pectoris Category: Medical Plan: History of CAD, cardiac catheterization in [place] 2016 for chest discomfort with LAD stenosis and stent placement. Full details unknown. Echocardiogram 02/21/2021 showed EF 55-60%, apex akinetic. He recently reported some fatigue and shortness of breath. He underwent an exercise stress test done 02/25/2024 with exercise 10 minutes, [id number] shortness of breath, EKG changes noted. He then underwent cardiac catheterization on 03/25/2024 showing patent stent and only minimal irregularities in the left circumflex and RCA. Today he reports no concerning symptoms. He is feeling better overall. His right radial catheterization site is well healed. He has multiple cardiac risk factors including CAD history, hypertension, hyperlipidemia, diabetes, overweight. Risk factor modification reviewed with him. Continue on current med management including aspirin 81 mg indefinitely. High-dose atorvastatin, bisoprolol, candesartan, Aldactone. Labs done 02/25/2024 shows LDL 60, potassium 4, creatinine 1.13. Signs and symptoms of angina reviewed. Cardiology office visit follow-up 1 year, sooner if needed (2) History of coronary artery stent placement: Comment: 2016 LAD stent Code(s): Z95.5 - Presence of coronary angioplasty implant and graft Category: Surgical Plan: As above (3) Hyperlipidemia: Code(s): E78.5 - Hyperlipidemia, unspecified Category: Medical Plan: [place] LDL goal less than 70 in patient with known CAD and diabetes. Continue atorvastatin. (4) Diabetes: Code(s): E11.9 - Type 2 diabetes mellitus without complications Category: Medical Plan: Hemoglobin A1c goal less than 7. Recent labs show hemoglobin A1c 6.3. He follows with his PCP. (5) Hypertension: Code(s): I10 - Essential (primary) hypertension Category: Medical Plan: [place] blood pressure goal less than 130/85. Blood pressure well controlled at present time. No med changes made (6) Hx of cardiac cath: Comment: 03/25/2024, left main normal, lad patent stent, left circumflex and RCA minimal irregularities Code(s): Z98.890 - Other specified postprocedural states Category: Surgical Plan: As above Plan Time spent on chart review, documentation, interview and assessment Coding Level of Care Code Est Pt Level 3 (58902) Diagnoses CAD (coronary atherosclerotic disease) I25.10 History of coronary artery stent placement Z95.5 Hyperlipidemia E78.5 Diabetes E11.9 Hypertension I10 Hx of cardiac cath Z98.890 Time Spent (min) 24
== END 2024-04-01 14:28 | disposition home or self-care (01) ==
PROVIDERS: PCP Internal Medicine; Visit Provider Nurse Practitioner Family
DX: I25.10 Atherosclerotic heart disease of native coronary artery without angina pectoris (principal); Z95.5 Presence of coronary angioplasty implant and graft; E78.5 Hyperlipidemia, unspecified; E11.9 Type 2 diabetes mellitus without complications; I10 Essential (primary) hypertension; Z98.890 Other specified postprocedural states
CPT/HCPCS: 99213

== ENCOUNTER → 2024-04-01 13:54 | Outpatient (BNVA) | payer OTHER, SELFPAY | PROVIDERS: PCP Internal Medicine; Visit Provider Nurse Practitioner Family | DX: I25.10 Atherosclerotic heart disease of native coronary artery without angina pectoris (principal); I10 Essential (primary) hypertension; E78.5 Hyperlipidemia, unspecified; E11.9 Type 2 diabetes mellitus without complications; Z95.5 Presence of coronary angioplasty implant and graft; Z98.890 Other specified postprocedural states | CPT/HCPCS: 99212 ==

== ENCOUNTER 2024-10-10 11:36 | Outpatient (REF) | payer OTHER, SELFPAY ==
[2024-10-10 15:08] LABS: MANUAL DIFF FLAG NO
[2024-10-10 15:39] LABS: Basophils Percent Auto 0.2 % (0-2); Eosinophils Absolute Auto 0.3 X10*3/uL (0.0-0.4); Eosinophils Percent Auto 3.6 % (0-4); Hematocrit 42.2 % (42.0-52.0); Hemoglobin 13.8 g/dl (14.0-18.0); Imm Gran Abs Auto 0.04 X10*3/uL (0.00-0.03); Imm Gran Pct Auto 0.4 % (0.0-0.4); Lymphocytes Absolute Auto 3.2 X10*3/uL (1.2-4.9); Lymphocytes Percent Auto 34.9 % (20-40); Mean Corpuscular HGB Conc 32.7 g/dl (31.0-36.0); Mean Corpuscular Hemoglobin 25.9 pg (27.0-33.0); Mean Corpuscular Volume 79.3 fL (80.0-98.0); Mean Platelet Volume 10.8 fL (9.4-12.4); Monocytes Absolute Auto 0.9 X10*3/uL (0.1-1.2); Monocytes Percent Auto 10.1 % (2-11); Neutrophils Absolute Auto 4.7 x10*3/uL (2.0-8.3); Neutrophils Percent Auto 50.8 % (45-73); Platelet Count 233 X10*3/uL (160-400); Red Blood Count 5.32 X10*6/uL (4.60-5.80); Red Cell Distribution Width 14.7 % (11.0-16.0); White Blood Count 9.2 X10*3/uL (4.8-10.8)
[2024-10-10 16:07] LABS: Iron 61 mcg/dL (45-160); Percent Iron Saturation 21 % (15-50); Total Iron Binding Capacity 285 mcg/dL (228-428); Unsaturated Iron Binding 224 ug/dL
[2024-10-10 16:20] LABS: Ferritin 175 ng/mL (20-250)
[2024-10-10 16:42] LABS: Folate 17.3 ng/mL (> or = 4.0); Vitamin B12 592 pg/mL (200-900)
[2024-10-13 17:49] LABS: Immunoglobulin A 284 mg/dL (70-320); Transglutaminase IgA <1.0 U/mL
== END 2024-10-10 11:37 | disposition home or self-care (01) ==
LOC: HO.LAB 11:36
PROVIDERS: Internal Medicine; PCP Internal Medicine
DX: I25.10 Atherosclerotic heart disease of native coronary artery without angina pectoris (principal); M54.2 Cervicalgia; E11.9 Type 2 diabetes mellitus without complications; E78.5 Hyperlipidemia, unspecified; R53.82 Chronic fatigue, unspecified; I10 Essential (primary) hypertension; H81.10 Benign paroxysmal vertigo, unspecified ear; Z98.890 Other specified postprocedural states
CPT/HCPCS: 36415; 82607; 82728; 82746; 82784; 83036; 83540; 85025; 86364; 96127; 99212

== ENCOUNTER 2024-10-10 11:36 | Outpatient (AMB) | payer OTHER, SELFPAY ==
[2024-10-10 11:43] VITALS: BP 126/66; PULSE 48; RESP 18; TEMP 36.6; O2SAT 97; BMI 29.7
--- NOTE | 2024-10-10 11:43 | A.OFFPC_ITS ---
Vital Signs 10/10/24 11:43 Height 5 ft 10 in Weight 207 lb BMI 29.7 BP 126/66 Blood Pressure Location Lt brachial Position Sitting Respiration 18 Pulse 48 L Pulse Source Pulse Oximeter Temp 97.8 F Temp Source Temporal Artery Scan Pulse Oximetry (%) 97 Oxygen Delivery Method Room Air Intake Visit Reasons: JEFRY DR Camejo Tap Puller Required: No Accompanied by: Self / Same As Patient Allergies No Known Allergies Allergy (Verified 10/11/24 09:41) Medication List - Last Reconciled 10/10/24 by CALDERON Nowak aspirin (Adult Low Dose Aspirin) 81 mg PO DAILY 90 days atorvastatin 80 mg PO DAILY bisoprolol fumarate 5 mg PO DAILY 90 days budesonide-formoterol 160-4.5 mcg/actuation (Symbicort) 2 puffs inhalation BID PRN candesartan 16 mg PO DAILY clotrimazole-betamethasone 1-0.05 % 1 appl topical BID PRN flash glucose scanning reader ([employer] Teena 2 [place]) As directed flash glucose sensor ([employer] Teena 2 Sensor kit) As directed metformin 500 mg PO DAILY rglzeebe-kabtvd-DA-thonzonium 3.3-3-10-0.5 mg/mL (Cortisporin-TC) 1 appl otic (ears) Q4H PRN omeprazole 20 mg PO DAILY PRN spironolactone 25 mg PO DAILY Tobacco use date assessed: 10/10/24 Dental Screening Dental Screen Date: 10/10/24 Did you have a dental visit in the last 12 months?: Yes Did you have a dental problem in the last 6 months where you did not have access to dental care?: No Was dental information given to patient?: Patient has dentist HPI JEFRY DR Camejo HPI Details The patient is a 64-year-old male with past medical history of stable angina, type 2 diabetes, asthma, HTN, history of coronary artery stent placement, hyperlipidemia and neck pain The patient is presenting today transitioned care from Dr. 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 and has been prescribed a steroid ear drops that he is currently taking He reports that he has ongoing neck pain and was told that he has a cervical tilting and would like to be referred to pain management Patient reports that he does get tired often and would like to get his testosterone checked; patient does have anemia, we will order CBC and a lipid panel as well [facility] Medical History (Updated 10/11/24 @ 11:54 by CALDERON Nowak) Obesity CAD (coronary atherosclerotic disease) Coronary artery disease (CAD) excluded Surgical History Hx of cardiac cath History of coronary artery stent placement Family History Mother No problems noted. Father No problems noted. Social History Housing: House Alcohol intake: never Patient Tobacco Use Status: Never used Tobacco Tobacco use type: Cigarette e-Cigarette/Vaping Use: Never Used Second Hand Smoke Exposure: No service: No Current occupational status: employed Cognitive needs: No Hearing needs: No Vision needs: Yes (Glasses) Questionnaire PHQ-9 Over the last 2 weeks, how often have you been bothered by any of the following problems? 1. Little interest or pleasure in doing things: not at all 2. Feeling down, depressed, or hopeless: not at all 3. Trouble falling or staying asleep, or sleeping too much: not at all 4. Feeling tired or having little energy: not at all 5. Poor appetite or overeating: not at all 6. Feeling bad about yourself - or that you are a failure or have let yourself or your family down: not at all 7. Trouble concentrating on things, such as reading the newspaper or watching television: not at all 8. Moving or speaking so slowly that other people could have noticed. Or the opposite - being so fidgety or restless that you have been moving around a lot more than usual: not at all 9. Thoughts that you would be better off or of hurting yourself in some way: not at all Total score: 0 Depression Screening Interpretation: Negative Depression Screening Done: Yes 26738 - PHQ-9 Billing: Yes Source: Developed by Drs. John Vital, iSndy Saxena, Faustino Sorto and colleagues, with an educational chuy from [employer]. Thrive Questionnaire Date Thrive assessed: 10/10/24 I am a: Patient What is your living situation today?: I have a steady place to live Within the past 12 months, did the food you bought not last and you didn't have the money to get more?: Never true Within the past 12 months, did you worry whether your food would run out before you got money to buy more?: Never true Do you have trouble paying for medicines?: No Do you have trouble getting transportation to medical appointments?: No Do you have trouble paying your heating and electricity bill?: No Do you have trouble taking care of your child, family member or friend?: No Do you have trouble with day-to-day activities such as bathing, preparing meals, shopping, managing finances, etc.?: No Are you currently unemployed and looking for a job?: No Are you interested in more education?: No Please select the resources that you would like help with: None Currently or been in a relationship where the following occur: No concerns reported THRIVE Score: 0 AUDIT C Alcohol Use Questionnaire (AUDIT-C) 1. How often do you have a drink containing alcohol?: Never 3. How often do you have six or more drinks on one occasion?: Never Total Score: 0 Score Reviewed/Action Taken: No MARLENY-7 AMB Questionnaire MARLENY-7 Date MARLENY - 7 assessed: 10/10/24 Feeling nervous, anxious, or on edge: 0 = Not at all Not being able to stop or control worryin = Not at all Worrying too much about different things: 0 = Not at all Trouble relaxin = Not at all Being so restless that it is hard to sit still: 0 = Not at all Becoming easily annoyed or irritable: 0 = Not at all Feeling afraid as if something awful might happen: 0 = Not at all Total MARLENY-7 score (0-4 normal; 5-9 mild; 10-14 moderate; 15-21 severe): 0 Source: Developed by Drs. John Vital, Sindy Saxena, Faustino Sorto and colleagues, with an educational chuy from [employer]. MARLENY-7 Assessment Billing MARLENY-7 Assessment Tool: MARLENY-7 Assessment 31029 Review of Systems Const Denies headache(s) and Reports lethargy Eyes Denies loss of vision ENT Reports vertigo, Reports dizziness, Denies headache(s), Reports neck pain, Rep orts tinnitus and Denies sore throat Card Denies chest pain, Denies leg edema, Denies lightheadedness, Reports dyspnea on exertion and Reports slow heart rate (on beta boris) Resp Denies cough, Denies hemoptysis, Reports dyspnea on exertion and Denies wheezing GI Denies abdominal pain, Denies melena, Denies constipation, Denies diarrhea and Denies vomiting Denies dysuria, Reports nocturia, Denies urinary frequency and Denies urinary urgency Musc Denies arthralgias, Denies joint swelling, Reports neck pain, Denies numbness and Denies tingling Neuro Denies Abnormal speech present, Denies behavioral changes, Reports vertigo, Reports dizziness, Denies headache(s), Denies loss of vision, Denies memory loss, Denies numbness and Denies tingling Psych Denies anxiety, Denies behavioral changes, Denies depression, Denies memory loss and Denies panic attacks Beny/Lymph Denies easy bleeding and Denies easy bruising Aller/Immun Denies wheezing Physical exam (Primary Care) Vital Signs: Last Vital Signs Temp 97.8 F 10/10/24 11:43 Pulse 48 L 10/10/24 11:43 Resp 18 10/10/24 11:43 BP 126/66 10/10/24 11:43 Pulse Ox 97 10/10/24 11:43 Oxygen Delivery Method Room Air 10/10/24 11:43 BMI result Body Mass Index 29.7 Tobacco/Smoking Status: Tobacco use Status Tobacco use date assessed 10/10/24 10/10/24 11:49 Patient Tobacco Use Status Never used Tobacco 10/10/24 11:51 Tobacco use type Cigarette 10/10/24 11:51 e-Cigarette/Vaping Use Never Used 10/10/24 11:51 PHQ-9: PHQ-9 Score PHQ-9: Total score 0 10/10/24 12:00 Depression Screening Interpretation: Negative Thrive Assessment: Date of Thrive Assessment Date Thrive assessed 10/10/24 10/10/24 11:49 Currently or been in a relationship where the following occur: No concerns reported Const General: healthy appearing, no acute distress, alert and awake Nutritional Appearance: well nourished Orientation/consciousness: oriented to person, oriented to place and oriented to time HENMT Ears: Abnormal EAC present cerumen impaction (was diagnosed with Keratosis obturan-on treatment currently) bilateral General nose exam: Normal nasal mucous membranes and turbinates present Throat: Yes posterior oropharynx normal Eyes Conjunctivae: conjunctivae normal Sclerae: sclerae normal Pupils: Equal, round and reactive pupils present Neck Neck: Yes no lymphadenopathy and Yes no JVD Thyroid: Thyroid normal Carotids: no bruits Resp Effort & Inspection: normal respiratory effort and not tachypneic Auscultation: no crackles, no rales, no rhonchi and no wheezes Cardio Rate: regular rate Rhythm: regular rhythm Heart sounds: no murmurs and normal S1 and S2 GI Palpation (GI): Soft to palpation and Tenderness to palpation present (GI) Auscultation: normal bowel sounds General: Yes no CVA tenderness Back/Spine/Pelvis Back: no CVA tenderness Cervical Spine: Cervical spine tenderness Thoracic/Lumbar Spine: No thoracic spinal tenderness and No lumbar spinal tenderness Skin General skin exam: no rashes or lesions noted and dry skin Neuro General: oriented to person, oriented to place, oriented to time and CN's II-XI intact bilaterally Cranial nerves: Yes Equal, round and reactive pupils present and Yes Nystagmus not present Speech: No Abnormal speech present Gait exam (Neuro): Normal gait present Motor exam (neuro): 5/5 motor strength present throughout and no tremor noted Coordination: Romberg test negative Extrem Right upper extremity: full ROM Left upper extremity: full ROM Right lower extremity: full ROM; no edema Left lower extremity: full ROM; no edema Psych Mental Status: mental status grossly normal Speech and movement: Normal speech and movement present Affect: normal affect Attitude: cooperative Thought process: Normal thought process present Results AMB Hemoglobin A1c AMB Hemoglobin A1c 6.1 % Last Edit by Julieta Terry CMA on 10/10/24 12:05 Results Reviewed Results Reviewed: Laboratory Last Values Hgb A1c (Clinic) 6.1 % (4.0-6.0) H 10/10/24 12:00 Coding Level of Care Code Est Pt Level 4 (85485) Diagnoses Hx of cardiac cath Z98.890 Atherosclerosis of coronary artery without angina pectoris, unspecified vessel or lesion type, unspecified whether [place] or transplanted heart I25.10 Coronary Disease-Associated Artery/Lesion type: unspecified vessel or lesion type [place] vs. transplanted heart: unspecified whether [place] or transplanted heart Associated angina: without angina Neck pain M54.2 Type 2 diabetes mellitus without complication, without long-term current use of insulin E11.9 Diabetes mellitus type: type 2 Diabetes mellitus salvage determiner insulin use: without custodial use Diabetes mellitus complication status: without complication Hyperlipidemia, unspecified hyperlipidemia type E78.5 Hyperlipidemia type: unspecified Hypertension, unspecified type I10 Hypertension type: unspecified Chronic fatigue R53.82 Fatigue type: chronic, unspecified Benign paroxysmal positional vertigo, unspecified laterality H81.10 Laterality: unspecified laterality Additional Codes MARLENY-7 Assessment Billing - MARLENY-7 Assessment Tool: MARLENY-7 Assessment 08540 ([id number]) PHQ-9 - 50407 - PHQ-9 Billing: Yes ([id number]) Time Spent (min) 41 Assessment & Plan Assessment & Plan (1) Hx of cardiac cath: Comment: 03/25/2024, left main normal, lad patent stent, left circumflex and RCA minimal irregularities Code(s): Z98.890 - Other specified postprocedural states Category: Surgical Plan: * Stable: The patient had HI while he was in [place] in 2016. He was first given streptokinase but continue to have chest pain. He had a catherization with stent placement in the LAD. He is being monitored by [facility] cardiology (Marlon Betancourt). (2) CAD (coronary atherosclerotic disease): Code(s): I25.10 - Atherosclerotic heart disease of [place] coronary artery without angina pectoris Category: Medical Qualifiers: Coronary Disease-Associated Artery/Lesion type: unspecified vessel or lesion type [place] vs. transplanted heart: unspecified whether [place] or transplanted heart Associated angina: without angina Qualified Code(s): I25.10 - Atherosclerotic heart disease of [place] coronary artery without angina pectoris Plan: The patient does complaints of some tiredness and shortness of breath with exertion that is short-lived. Per chart review, he had similar complaints in the past. Cardiolites stress test done in 03/2023 showed gated LVEF 59% during stress and 58% during rest and the patient was diagnosed with Stable angina. HR is bradycardic with optimal blood pressure. Continue Aspirin 81 mg daily, atorvastatin 80 md daily, bisoprolol furmarate 5 mg daily, candesartan 16 mg daily and spironolactone 25 mg daily. Reinforced low-sodium diet follow up with Cardiology as scheduled (3) Neck pain: Comment: 20 min reviewing chart eval pt and documenting; will refer to PSP Code(s): M54.2 - Cervicalgia Category: Medical Plan: Patient complains of chronic neck pain. Cervical x-ray done in 2021 showed left bridging osteophytes at C2-C3, C4-C5, C5-C6, and C6-C7 disc levels. There is mild tilt of the head to the right side. We will refer the patient to pain management (4) Diabetes: Code(s): E11.9 - Type 2 diabetes mellitus without complications Category: Medical Qualifiers: Diabetes mellitus type: type 2 Diabetes mellitus custodial insulin use: without salvage determiner use Diabetes mellitus complication status: without com plication Qualified Code(s): E11.9 - Type 2 diabetes mellitus without complications Plan: A1c done in office 6.1% Reinforced low sugar/carbohydrate diet and activity as tolerated Continue metformin 500 mg daily (5) Hyperlipidemia: Code(s): E78.5 - Hyperlipidemia, unspecified Category: Medical Qualifiers: Hyperlipidemia type: unspecified Qualified Code(s): E78.5 - Hyperlipidemia, unspecified Plan: Reinforced low-cholesterol diet Continue atorvastatin 80 mg daily Lipid panel ordered for patient to complete as soon as possible (6) Hypertension: Code(s): I10 - Essential (primary) hypertension Category: Medical Qualifiers: Hypertension type: unspecified Qualified Code(s): I10 - Essential (primary) hypertension Plan: Blood pressure within goal in office Reinforced low sodium diet Continue bisoprolol 5 mg, candesartan 16 mg daily, and spironolactone 25 mg daily (7) Fatigue: Code(s): R53.83 - Other fatigue Category: Medical Qualifiers: Fatigue type: chronic, unspecified Qualified Code(s): R53.82 - Chronic fatigue, unspecified Plan: Multifactorial. The patient is anemic, cardiac and respiratory disease. CBC, i krystyna panel, testosterone ordered (8) Benign paroxysmal positional vertigo: Code(s): H81.10 - Benign paroxysmal vertigo, unspecified ear Category: Medical Qualifiers: Laterality: unspecified laterality Qualified Code(s): H81.10 - Benign paroxysmal vertigo, unspecified ear Plan: PT eval ordered for vestibular therapy Orders: Orders AMB Hemoglobin A1c 10/10/24 CALDERON Nowak E11.9 - Type 2 diabetes mellitus without complications Lipid Panel 10/10/24 CALDERON Nowak E11.69 - Type 2 diabetes mellitus with other specified complication, E78.5 - Hyperlipidemia, unspecified, I10 - Essential (primary) hypertension, I20.89 - Other forms of angina pectoris, I25.10 - Atherosclerotic heart disease of [place] coronary artery without angina pectoris, J45.909 - Unspecified asthma, uncomplicated, M54.2 - Cervicalgia, R53.83 - Other fatigue, R94.39 - Abnormal result of other cardiovascular function study, Z03.89 - Encounter for observation for other suspected diseases and conditions ruled out, Z98.890 - Other specified postprocedural states Vitamin D 25-OH Total 10/10/24 CALDERON Nowak E11.69 - Type 2 diabetes mellitus with other specified complication, E78.5 - Hyperlipidemia, unspecified, I10 - Essential (primary) hypertension, I20.89 - Other forms of angina pectoris, I25.10 - Atherosclerotic heart disease of [place] coronary artery without angina pectoris, J45.909 - Unspecified asthma, uncomplicated, M54.2 - Cervicalgia, R53.83 - Other fatigue, R94.39 - Abnormal result of other cardiovascular function study, Z03.89 - Encounter for observation for other suspected diseases and conditions ruled out, Z98.890 - Other specified postprocedural states Testosterone, Free/Total Today CALDERON Nowak I25.10 - Atherosclerotic heart disease of [place] coronary artery without angina pectoris, R06.02 - Shortness of breath, R53.83 - Other fatigue, Z98.890 - Other specified postprocedural states PT Evaluation and Treatment Today CALDERON Nowak H81.10 - Benign paroxysmal vertigo, unspecified ear Complete Blood Count Auto Diff 10/10/24 CALDERON Nowak E11.69 - Type 2 diabetes mellitus with other specified complication, E78.5 - Hyperlipidemia, unspecified, I10 - Essential (primary) hypertension, I20.89 - Other forms of angina pectoris, I25.10 - Atherosclerotic heart disease of [place] coronary artery without angina pectoris, J45.909 - Unspecified asthma, uncomplicated, M54.2 - Cervicalgia, R53.83 - Other fatigue, R94.39 - Abnormal result of other cardiovascular function study, Z03.89 - Encounter for observation for other suspected diseases and conditions ruled out, Z98.890 - Other specified postprocedural states Comprehensive [place]. Panel Fast 10/10/24 CALDERON Nowak E11.69 - Type 2 diabetes mellitus with other specified complication, E78.5 - Hyperlipidemia, unspecified, I10 - Essential (primary) hypertension, I20.89 - Other forms of angina pectoris, I25.10 - Atherosclerotic heart disease of [place] coronary artery without angina pectoris, J45.909 - Unspecified asthma, uncomplicated, M54.2 - Cervicalgia, R53.83 - Other fatigue, R94.39 - Abnormal result of other cardiovascular function study, Z03.89 - Encounter for observation for other suspected diseases and conditions ruled out, Z98.890 - Other specified post procedural states PSA,Total (Free>4and<10) 10/10/24 CALDERON Nowak E11.69 - Type 2 diabetes mellitus with other specified complication, E78.5 - Hyperlipidemia, unspecified, I10 - Essential (primary) hypertension, I20.89 - Other forms of angina pectoris, I25.10 - Atherosclerotic heart disease of [place] coronary artery without angina pectoris, J45.909 - Unspecified asthma, uncomplicated, M54.2 - Cervicalgia, R53.83 - Other fatigue, R94.39 - Abnormal result of other cardiovascular function study, Z03.89 - Encounter for observation for other suspected diseases and conditions ruled out, Z98.890 - Other specified postprocedural states Hemoglobin A1c 10/10/24 CALDERON Nowak E11.69 - Type 2 diabetes mellitus with other specified complication, E78.5 - Hyperlipidemia, unspecified, I10 - Essential (primary) hypertension, I20.89 - Other forms of angina pectoris, I25.10 - Atherosclerotic heart disease of [place] coronary artery without angina pectoris, J45.909 - Unspecified asthma, uncomplicated, M54.2 - Cervicalgia, R53.83 - Other fatigue, R94.39 - Abnormal result of other cardiovascular function study, Z03.89 - Encounter for observation for other suspected diseases and conditions ruled out, Z98.890 - Other specified postprocedural states Glucose Fasting 10/10/24 CALDERON Nowak E11.69 - Type 2 diabetes mellitus with other specified complication, E78.5 - Hyperlipidemia, unspecified, I10 - Essential (primary) hypertension, I20.89 - Other forms of angina pectoris, I25.10 - Atherosclerotic heart disease of [place] coronary artery without angina pectoris, J45.909 - Unspecified asthma, uncomplicated, M54.2 - Cervicalgia, R53.83 - Other fatigue, R94.39 - Abnormal result of other cardiovascular function study, Z03.89 - Encounter for observation for other suspected diseases and conditions ruled out, Z98.890 - Other specified postprocedural states UA CC w/rflx Micro + Cult 10/10/24 CALDERON Nowak E11.69 - Type 2 diabetes mellitus with other specified complication, E78.5 - Hyperlipidemia, unspecified, I10 - Essential (primary) hypertension, I20.89 - Other forms of angina pectoris, I25.10 - Atherosclerotic heart disease of [place] coronary artery without angina pectoris, J45.909 - Unspecified asthma, uncomplicated, M54.2 - Cervicalgia, R53.83 - Other fatigue, R94.39 - Abnormal result of other cardiovascular function study, Z03.89 - Encounter for observation for other suspected diseases and conditions ruled out, Z98.890 - Other specified postprocedural states TSH reflex Free T4 10/10/24 CALDERON Nowak E11.69 - Type 2 diabetes mellitus with other specified complication, E78.5 - Hyperlipidemia, unspecified, I10 - Essential (primary) hypertension, I20.89 - Other forms of angina pectoris, I25.10 - Atherosclerotic heart disease of [place] coronary artery without angina pectoris, J45.909 - Unspecified asthma, uncomplicated, M54.2 - Cervicalgia, R53.83 - Other fatigue, R94.39 - Abnormal result of other cardiovascular function study, Z03.89 - Encounter for observation for other suspected diseases and conditions ruled out, Z98.890 - Other specified postprocedural states IRON PROFILE 10/10/24 CALDERON Nowak E11.69 - Type 2 diabetes mellitus with other specified complication, E78.5 - Hyperlipidemia, unspecified, I10 - Essential (primary) hypertension, I20.89 - Other forms of angina pectoris, I25.10 - Atherosclerotic heart disease of [place] coronary artery without angina pectoris, J45.909 - Unspecified asthma, uncomplicated, M54.2 - Cervicalgia, R53.83 - Other fatigue, R94.39 - Abnormal result of other cardiovascular function study, Z03.89 - Encounter for observation for other suspected diseases and conditions ruled out, Z98.890 - Other specified postprocedural states B Type Natriuretic Peptide Today CALDERON Nowak I25.10 - Atherosclerotic heart disease of [place] coronary artery without angina pectoris, R06.02 - Shortness of breath, R53.83 - Other fatigue, Z98.890 - Other specified postprocedural states Referrals Pain Management Referral CALDERON Nowak M54.2 - Cervicalgia Medications: Changed From budesonide-formoterol 160-4.5 mcg/actuation (Symbicort) 2 puffs inhalation BID PRN J45.909 - Unspecified asthma, uncomplicated To budesonide-formoterol 160-4.5 mcg/actuation (Symbicort) 2 puffs inhalation BID 10.2 grams 0RF J45.909 - Unspecified asthma, uncomplicated CALDERON Nowak From clotrimazole-betamethasone 1-0.05 % 1 appl topical BID 2 weeks 45 grams 0RF To clotrimazole-betamethasone 1-0.05 % 1 appl topical BID PRN Tung Camejo MD From lzaaukma-pjyrid-AE-thonzonium 3.3-3-10-0.5 mg/mL (Cortisporin-TC) apply to (cotton) wick; replace wick every 24 hours 1 appl otic (ears) Q4H 10 mL 1RF To hjdyefxk-vlxopp-OG-thonzonium 3.3-3-10-0.5 mg/mL (Cortisporin-TC) apply to (cotton) wick; replace wick every 24 hours 1 appl otic (ears) Q4H PRN Tung Camejo MD Refilled aspirin (Adult Low Dose Aspirin) 81 mg PO DAILY 90 days 90 tabs 3RF CALDERON Nowak I25.10 - Atherosclerotic heart disease of [place] coronary artery without angina pectoris bisoprolol fumarate 5 mg PO DAILY 90 days 90 tabs 3RF CALDERON Nowak I25.10 - Atherosclerotic heart disease of [place] coronary artery without angina pectoris candesartan 16 mg PO DAILY 90 tabs 3RF CALDERON Nowak Z03.89 - Encounter for observation for other suspected diseases and conditions ruled out spironolactone 25 mg PO DAILY 90 tabs 3RF CALDERON Nowak I25.10 - Atherosclerotic heart disease of [place] coronary artery without angina pectoris atorvastatin 80 mg PO DAILY 90 tabs 3RF CALDERON Nowak I25.10 - Atherosclerotic heart disease of [place] coronary artery without angina pectoris metformin 500 mg PO DAILY 90 tabs 3RF ASIA Nowak-C
--- OUTSIDE RECORDS SUMMARY | 2024-10-10 12:36 | XMS_ITS ---
Author Organization [facility] Address [address] [place] [address] Care Team Providers Care Independent Living Instructor Name Role Phone Nell BRUNO, Tung Primary Care Provider John Mccallum [phone] REASON FOR VISIT insurance Encounters Encounter Location Date Provider Diagnosis [facility] [address] [place] [address] 09/22/2024 John Zhou Plan Of Treatment Next Appt Details Provider Name:John Zhou , 10/10/2024 01:00:00 PM, [address], [address], [place], [address], Progress Notes * HOANG DAVILAKALPANAOB:1960 ( 64 yo M)Acc No.[id number]:09/22/2024 Patient:?DEBORAH DAVILA :1960???Age:64 Y???Sex:Male Address:[address] [place] [address], [address] * true * Date:? Generated for Sara adames/Niyah/eTransmitting on:?10/10/2024 12:36 PM EDT
--- OUTSIDE RECORDS SUMMARY | 2024-10-10 12:37 | XMS_ITS | Patient Health Record ---
Author Organization [facility] Address [address] [place] [address] Care Team Providers Care Lighting Director Name Role Phone Tung Camejo MD Primary Care Provider Luza John Krause Unavailable [phone] Reason For Referral No Information Encounters Encounter Location Date Provider Diagnosis [facility] [address] [place] [address] 09/22/2024 John Zhou Plan Of Treatment Next Appt Details Provider Name:John Zhou , 10/10/2024 01:00:00 PM, [address] [place] [address], [address], [place], [address], Insurance Providers Payer Name Payer Address Payer Phone Subscriber Number Group Number Insured Name Patient Relationship to Insured Coverage Start Date Coverage End Date [facility] [address] [address] [place], [place] [id number] DEBORAH DAVILA Self - patient is the insured
--- OUTSIDE RECORDS SUMMARY | 2024-10-10 12:37 | XMS_ITS ---
Author Organization [facility] Address [address] [place] [address] Care Team Providers Care Machine Packager Name Role Phone Nell BRUNO, Tung Primary Care Provider John Mccallum [phone] REASON FOR VISIT Patient presents today for a screening colonoscopy Encounters Encounter Location Date Provider Diagnosis [facility] [address] [place] [address] 10/10/2024 John Zhou Plan Of Treatment Next Appt Details Provider Name:John Zhou , 10/10/2024 01:00:00 PM, [address], [address], [place], [address], Progress Notes * BERTHA DAVILAFLORAOB:1960 ( 64 yo M)Acc No.[id number]:10/10/2024 Progress Notes Patient:?DEBORAH DAVILA Provider:?John Zhou MD :1960???Age:64 Y???Sex:Male Larry e:10/10/2024 Address:[address] [place], [place] [id number] Pcp:Tung Camejo MD Subjective: * Chief Complaints: * ???1. Patient presents today for a screening colonoscopy. * Medical History:? Objective: * Vitals:? Assessment: Plan: * Treatment: * * The named appointment provid er may or may not be the originator of this progress note, and it is not deemed complete until electronically signed by the appointment provider. Sign off status: Pending * Provider:?John Zhou MD Date:? 025 Generated for Sara adames/Niyah/eTransmitting on:?10/10/2024 12:36 PM EDT
== END 2024-10-10 12:41 | disposition home or self-care (01) ==
LOC: HO.HMCH 11:37
PROVIDERS: PCP Internal Medicine
DX: E11.9 Type 2 diabetes mellitus without complications (principal)

== ENCOUNTER 2025-02-03 12:15 | Outpatient (REF) | payer OTHER, SELFPAY ==
[2025-02-03 12:41] LABS: MANUAL DIFF FLAG NO
--- OUTSIDE RECORDS SUMMARY | 2025-02-03 12:56 | XMS_ITS | Patient Health Record ---
Author Organization [facility] Address [address] [place] [address] Care Team Providers Care Spanish Interpreter Name Role Phone Pérez Barbour N.P. Primary Care Provider John Chaudhary Unavailable [phone] Allergies No Known Allergies Results Component Value Reference Range Notes Ferritin Reviewed date:10/10/2024 05:26:02 PM Interpretation: Performing Lab:[facility] [place], [address] [place] [phone] Notes/Report: Ferritin 175 20-250 ng/mL Complete Blood Count Auto Di ff Reviewed date:10/10/2024 05:26:51 PM Interpretation: Performing Lab:[facility] [place], [address] [place] [phone] Notes/Report: White Blood Count 9.2 4.8-10.8 X10*3/uL [...] PROFILE Reviewed date:10/10/2024 05:25:34 PM Interpretation: Performing Lab:[facility] [place], [address] [place] [phone] Notes/Report: Iron 61 45-160 mcg/dL Total Iron Binding Capacity 285 228-428 mcg/d L Percent Iron Saturation 21 15-50 % Unsaturated Iron Binding 224 Vitamin B12 and Folate Reviewed date:10/10/2024 05:25:51 PM Interpretation: Performing Lab:[facility] [place], [address] [place] [phone] Notes/Report: Vitamin B12 592 200-900 pg/mL NORMAL 200-900 PG/ML INDETERMINATE 160-199 PG/ML DEFICIENT < 160 PG/ML Folate 17.3 > or = 4.0 ng/mL Reference Values: > or = 4.0 ng/mL < 4.0 ng/mL suggests folate deficiency Methotrexate, aminopterin and folinic acid (leucovorin) are chemotherapeutic agents whose molecular structures are similar to folate; therefore, the Landfill Attendant folate assay cannot be used for patients using these drugs. Celiac Disease Panel Reviewed date:10/14/2024 12:17:50 AM Interpretation: Performing Lab:[facility] [place], [address] [place] [phone] Notes/Report: Immunoglobulin A 284 70-320 mg/dL THIS TEST WAS PERFORMED AT: [facility] [address] [place] [phone] PARKER SCHWARTZ MD Transglutaminase IgA <1.0 Value [...] Status Risk Notes Problem Colon cancer screening (854816251) Colon cancer screening (Z12.11) Active confirmed Problem Irritable bowel syndrome (85190212) Irritable bowel syndrome (K58.9) Active confirmed Problem Preprocedural examination (797645223108061) Preprocedural examination (Z01.818) Active confirmed Problem Anemia (846078310) Anemia (D64.9) Active confirmed Vital Signs Temperature 97.7 degrees Fahrenheit 10/10/2024 Blood pressure diastolic 01 mm Hg 10/10/2024 Height 70 in 10/10/2024 Blood pressure systolic 001 mm Hg 10/10/2024 Weight 205.4 lbs 10/10/2024 BMI 29.47 kg/m2 10/10/2024 Procedures Procedure Date Ordered Date Performed Result Body Sit e COLONOSCOPY 10/10/2024 N/A Encounters Encounter Location Date Provider Diagnosis [facility] [address] [place] [address] 10/10/2024 John Zhou Colon cancer screeni ng Z12.11 ; Anemia D64.9 ; Preprocedural examination Z01.818 and Irritable bowel syndrome K58.9 [facility] [address] [place] [address] 09/22/2024 John Zhou [facility] [address] [place] [address] 02/03/2025 John Zhou Assessments Encounter Date Diagnosis (ICD [...] w DIFF 10/10/2024 Celiac Panel 10 10/10/2024 Insurance Providers Payer Name Payer Address Payer Phone Subscriber Number Group Number Insured Name Patient Relationship to Insured Coverage Start Date Coverage End Date [facility] [address] [address] [place], [place] [id number] DEBORAH DAVILA Self - patient is the insured Medical (General) History Medical History History ICD Code CT 2015- stent in heart-Dr. Gupta; n eg cardiac cath in 2022 HTN Hyperlipidemia Asthma Denies CVA or Renal disease NIDDM
[2025-02-03 13:55] LABS: Hematocrit 41.2 % (42.0-52.0); Hemoglobin 13.3 g/dl (14.0-18.0); Imm Gran Abs Auto 0.03 X10*3/uL (0.00-0.03); Imm Gran Pct Auto 0.4 % (0.0-0.4); Lymphocytes Absolute Auto 2.7 X10*3/uL (1.2-4.9); Mean Corpuscular HGB Conc 32.3 g/dl (31.0-36.0); Mean Corpuscular Hemoglobin 25.9 pg (27.0-33.0); Mean Corpuscular Volume 80.2 fL (80.0-98.0); NRBC Abs Auto 0.000 X10*3/uL (0.0-0.012); NRBC Pct Auto 0.0 /100WBC (0.0-0.2); Platelet Count 224 X10*3/uL (160-400); Red Blood Count 5.14 X10*6/uL (4.60-5.80); White Blood Count 8.4 X10*3/uL (4.8-10.8)
[2025-02-03 14:06] LABS: Appearance Urine Clear; Glucose Urine UA Negative (Negative); PH 6.5 (5.0-9.0); Specific Gravity - Urine 1.015 (1.005-1.025)
[2025-02-03 14:23] LABS: B Type Natriuretic Peptide 80 pg/mL (<100)
[2025-02-03 14:25] LABS: Hemoglobin A1C 213.6635 umol/L; Total Hemoglobin (HGBA1C) 4609.9825 umol/L
[2025-02-03 14:40] LABS: PSA,Total (Free>4and<10) 1.15 ng/mL (0.00-4.00)
[2025-02-03 14:43] LABS: Alanine Aminotransferase 27 U/L (0-40); Albumin Level 4.3 g/dL (3.5-5.0); Alkaline Phosphatase 93 U/L (39-117); Anion Gap 10 (12-20); Aspartate Amino Transferase 28 U/L (5-37); Blood Urea Nitrogen 15 mg/dL (9-16); Calcium 8.8 mg/dL (8.4-10.2); Carbon Dioxide 24 mmol/L (22-29); Chloride 108 mmol/L (96-108); Cholesterol 107 mg/dL (<200); Estimated Glomerular Filt Rate > 60; HDL Cholesterol 31 mg/dL (>40); Iron 51 mcg/dL (45-160); Percent Iron Saturation 20 % (15-50); Potassium 4.1 mmol/L (3.3-5.1); Sodium 138 mmol/L (135-145); Total Iron Binding Capacity 258 mcg/dL (228-428); Total Protein 7.2 g/dL (6.5-8.0); Triglycerides 58 mg/dL (<150); Unsaturated Iron Binding 207 ug/dL
[2025-02-07 13:48] LABS: Testosterone, Free 42.5 pg/mL (35.0-155.0)
== END 2025-02-03 12:16 | disposition home or self-care (01) ==
LOC: HO.LAB 12:15
DX: Z12.5 Encounter for screening for malignant neoplasm of prostate (principal); Z03.89 Encounter for observation for other suspected diseases and conditions ruled out; I25.118 Atherosclerotic heart disease of native coronary artery with other forms of angina pectoris; E11.69 Type 2 diabetes mellitus with other specified complication; I10 Essential (primary) hypertension; M54.2 Cervicalgia; R94.39 Abnormal result of other cardiovascular function study; Z98.890 Other specified postprocedural states; E78.5 Hyperlipidemia, unspecified; J45.909 Unspecified asthma, uncomplicated; R53.83 Other fatigue; R06.02 Shortness of breath
CPT/HCPCS: 36415; 80053; 80061; 81003; 82306; 83036; 83540; 83880; 84153; 84402; 84403; 84443; 85025

== ENCOUNTER 2025-02-04 13:09 | Day surgery (SDC) | payer OTHER, SELFPAY ==
--- OUTSIDE RECORDS SUMMARY | 2025-01-08 13:32 | XMS_ITS | Patient Health Record ---
Author Organization [facility] Address [address] [place] [address] Care Team Providers Care Timber Treating Tank Operator Name Role Phone Pérez Barbour N.P. Primary Care Provider John Chaudhary [phone] Allergies No Known Allergies Results Component Value Reference Range Notes Ferritin Reviewed date:10/10/2024 05:26:02 PM Interpretation: Performing Lab:[facility], [address] [place] [phone] Notes/Report: Ferritin 175 20-250 ng/mL Complete Blood Count Auto Di ff Reviewed date:10/10/2024 05:26:51 PM Interpretation: Performing Lab:[facility], [address] [place] [phone] Notes/Report: White Blood Count 9.2 4.8-10.8 X10*3/uL Red Blood Count 5.32 4.60-5.80 X10*6/uL Hemoglobin 13.8 14.0-18.0 g/dl Hematocrit 42.2 42.0-52.0 % Mean Corpuscular Volume 79.3 80.0-98.0 fL Mean Corpuscular Hemoglobin 25.9 27.0-33.0 pg Mean Corpuscular HGB Conc 32.7 31.0-36.0 g/dl Red Cell Distribution Width 14.7 11.0-16.0 % Platelet Count 233 160-400 X10*3/uL Mean Platelet Volume 10.8 9.4-12.4 fL Neutrophils Percent Auto 50.8 45-73 % Imm Gran Pct Auto 0.4 0.0-0.4 % Lymphocytes Percent Auto 34.9 20-40 % Monocytes Percent Auto 10.1 2-11 % Eosinophils Percent Auto 3.6 0-4 % Basophils Percent Auto 0.2 0-2 % NRBC Pct Auto 0.0 0.0-0.2 /100WBC Neutrophils Absolute Auto 4.7 2.0-8.3 x10*3/u L Imm Gran Abs Auto 0.04 0.00-0.03 X10*3/uL Lymphocytes Absolute Auto 3.2 1.2-4.9 X10*3/u L Monocytes Absolute Auto 0.9 0.1-1.2 X10*3/uL Eosinophils Absolute Auto 0.3 0.0-0.4 X10*3/u L Basophils Absolute Auto 0.0 0.0-0.2 X10*3/uL NRBC Abs Auto 0.000 0.0-0.012 X10*3/uL IRON PROFILE Reviewed date:10/10/2024 05:25:34 PM Interpretation: Performing Lab:[facility], [address] [place] [phone] Notes/Report: Iron 61 45-160 mcg/dL Total Iron Binding Capacity 285 228-428 mcg/d L Percent Iron Saturation 21 15-50 % Unsaturated Iron Binding 224 Vitamin B12 and Folate Reviewed date:10/10/2024 05:25:51 PM Interpretation: Performing Lab:[facility], [address] [place] [phone] Notes/Report: Vitamin B12 592 200-900 pg/mL NORMAL 200-900 PG/ML INDETERMINATE 160-199 PG/ML DEFICIENT < 160 PG/ML Folate 17.3 > or = 4.0 ng/mL Reference Values: > or = 4.0 ng/mL < 4.0 ng/mL suggests folate deficiency Methotrexate, aminopterin and folinic acid (leucovorin) are chemotherapeutic agents whose molecular structures are similar to folate; therefore, the Jet Dyeing Machine Tender folate assay cannot be used for patients using these drugs. Celiac Disease Panel Reviewed date:10/14/2024 12:17:50 AM Interpretation: Performing Lab:[facility], [address] [place] [phone] Notes/Report: Immunoglobulin A 284 70-320 mg/dL THIS TEST WAS PERFORMED AT: [facility] [address] [place] [phone] PARKER SCHWARTZ MD Transglutaminase IgA <1.0 Value Interpretation ----- <15.0 Antibody not detected > or = 15.0 Antibody detected Celiac Disease Panel Interp. SEE NOTE No serological evidence of celiac disease. tTG IgA may normalize in individuals with celiac disease who maintain a gluten-free diet. Consider HLA DQ2 and DQ8 testing to rule out celiac disease. Celiac disease is extremely rare in the absence of DQ2 or DQ8. Reason For Referral No Information Medications Medication SIG (Take, Route, Frequency, Duration) Notes Start Date End Date Status Losartan Potassium 25 MG 1 tablet Orally Once a day Active Lipitor 80 MG 1 tablet Orally Once a day Active Aspirin 81 81 MG 1 tablet Orally Once a day Active metFORMIN HCl 500 MG 1 tablet with a clarissa l Orally Twice a day 10/10/2024 Active Spironolactone 25 MG 1 tablet Orally Active Bisoprolol Fumarate 5 MG 1 tablet Orally Once a day Active Immunizations Vaccine Route Administration Date Status Comme nts Influenza Unknown 10/10/2024 Refused Social History Tobacco Use: Social History Observation Description Date Details (start date - stop date) Never Smoker NA - NA Tobacco Control (Standard) Question Answer Notes Tobacco use: Nonsmoker AUDIT-C (Standard) Question Answer Notes Did you have a drink containing alcohol in the p ast year? No Points 0 Interpretation Negative Section Notes: From [place] originally Nonsmoker; no EtOH Problems Problem Type SNOMED Code ICD Code Onset Dates Problem Status W/U Status Risk Notes Problem Colon cancer screening (881516879) Colon cancer screening (Z12.11) Active confirmed Problem Irritable bowel syndrome (05436907) Irritable bowel syndrome (K58.9) Active confirmed Problem Preprocedural examination (414149432575958) Preprocedural examination (Z01.818) Active confirmed Problem Anemia (539151707) Anemia (D64.9) Active confirmed Vital Signs Temperature 97.7 degrees Fahrenheit 10/10/2024 Blood pressure diastolic 01 mm Hg 10/10/2024 Height 70 in 10/10/2024 Blood pressure systolic 001 mm Hg 10/10/2024 Weight 205.4 lbs 10/10/2024 BMI 29.47 kg/m2 10/10/2024 Procedures Procedure Date Ordered Date Performed Result Body Sit e COLONOSCOPY 10/10/2024 N/A Encounters Encounter Location Date Provider Diagnosis [facility] [address] [place] [address] 10/10/2024 John Zhou Colon cancer screeni ng Z12.11 ; Anemia D64.9 ; Preprocedural examination Z01.818 and Irritable bowel syndrome K58.9 [facility] [address] [place] [address] 09/22/2024 John Zhou Assessments Encounter Date Diagnosis (ICD Code) Assessment Notes Treatment Notes Treatment Clinical Notes Section Notes 10/10/2024 Colon cancer screening (ICD-10 - Z12.11) Do not take aspirin on the morning of the colonoscopy. Do not take metformin the night before or on the morning of the colonoscopy.Do not take spironolactone the day before or on the day of the colonoscopy. Overall, Deborah appears well. We did review that his symptoms of the irregular bowel movements and lactose intolerance seem consistent with some irritable bowel syndrome. Based on his history this may have been triggered by some antibiotic associated diarrhea 5 or 6 years ago. We did discuss the option of adding a probiotic to his regimen although he does report that he tried that in the past without much improvement. We did discuss avoiding lactose so as to minimize his symptoms. I do not think he needs an antispasmodic at this time as he does not describe much in the way of abdominal cramps and discomfort I did review his laboratories with him in regard to the anemia with borderline microcytic indices. I shall check some follow-up laboratories including a repeat CBC, iron studies, B12 and folate level, and a celiac disease profile. The latter would be helpful to rule out in regard to the irregular bowel movements, as well as a cause of anemia. Lastly I did recommend a colonoscopy primarily for screening purposes. Full consent has been obtained for this, including risks of bleeding and perforation. The procedure will be done with monitored anesthesia care. We did review the rationale for this in regard to colon cancer prevention. He was given the below instructions regarding adjustment of his medications for the procedure. If by chance he is iron deficient and/or the celiac disease labs are positive, I would then recommend an upper endoscopy on the same day as the colonoscopy. Deborah was comfortable with this plan. Thank you again for allowing me to participate in Deborah's care. I shall continue to keep you advised of his progress.. 10/10/2024 Anemia (ICD-10 - D64.9) Overall, Deborah appears well. We did review that his symptoms of the irregular bowel movements and lactose intolerance seem consistent with some irritable bowel syndrome. Based on his history this may have been triggered by some antibiotic associated diarrhea 5 or 6 years ago. We did discuss the option of adding a probiotic to his regimen although he does report that he tried that in the past without much improvement. We did discuss avoiding lactose so as to minimize his symptoms. I do not think he needs an antispasmodic at this time as he does not describe much in the way of abdominal cramps and discomfort I did review his laboratories with him in regard to the anemia with borderline microcytic indices. I shall check some follow-up laboratories including a repeat CBC, iron studies, B12 and folate level, and a celiac disease profile. The latter would be helpful to rule out in regard to the irregular bowel movements, as well as a cause of anemia. Lastly I did recommend a colonoscopy primarily for screening purposes. Full consent has been obtained for this, including risks of bleeding and perforation. The procedure will be done with monitored anesthesia care. We did review the rationale for this in regard to colon cancer prevention. He was given the below instructions regarding adjustment of his medications for the procedure. If by chance he is iron deficient and/or the celiac disease labs are positive, I would then recommend an upper endoscopy on the same day as the colonoscopy. Deborah was comfortable with this plan. Thank you again for allowing me to participate in Deborah's care. I shall continue to keep you advised of his progress.. 10/10/2024 Preprocedural examination (ICD-10 - Z01.818) Overall, Deborah appears well. We did review that his symptoms of the irregular bowel movements and lactose intolerance seem consistent with some irritable bowel syndrome. Based on his history this may have been triggered by some antibiotic associated diarrhea 5 or 6 years ago. We did discuss the option of adding a probiotic to his regimen although he does report that he tried that in the past without much improvement. We did discuss avoiding lactose so as to minimize his symptoms. I do not think he needs an antispasmodic at this time as he does not describe much in the way of abdominal cramps and discomfort I did review his laboratories with him in regard to the anemia with borderline microcytic indices. I shall check some follow-up laboratories including a repeat CBC, iron studies, B12 and folate level, and a celiac disease profile. The latter would be helpful to rule out in regard to the irregular bowel movements, as well as a cause of anemia. Lastly I did recommend a colonoscopy primarily for screening purposes. Full consent has been obtained for this, including risks of bleeding and perforation. The procedure will be done with monitored anesthesia care. We did review the rationale for this in regard to colon cancer prevention. He was given the below instructions regarding adjustment of his medications for the procedure. If by chance he is iron deficient and/or the celiac disease labs are positive, I would then recommend an upper endoscopy on the same day as the colonoscopy. Deborah was comfortable with this plan. Thank you again for allowing me to participate in Deborah's care. I shall continue to keep you advised of his progress.. 10/10/2024 Irritable bowel syndrome (ICD-10 - K58.9) Overall, Deborah appears well. We did review that his symptoms of the irregular bowel movements and lactose intolerance seem consistent with some irritable bowel syndrome. Based on his history this may have been triggered by some antibiotic associated diarrhea 5 or 6 years ago. We did discuss the option of adding a probiotic to his regimen although he does report that he tried that in the past without much improvement. We did discuss avoiding lactose so as to minimize his symptoms. I do not think he needs an antispasmodic at this time as he does not describe much in the way of abdominal cramps and discomfort I did review his laboratories with him in regard to the anemia with borderline microcytic indices. I shall check some follow-up laboratories including a repeat CBC, iron studies, B12 and folate level, and a celiac disease profile. The latter would be helpful to rule out in regard to the irregular bowel movements, as well as a cause of anemia. Lastly I did recommend a colonoscopy primarily for screening purposes. Full consent has been obtained for this, including risks of bleeding and perforation. The procedure will be done with monitored anesthesia care. We did review the rationale for this in regard to colon cancer prevention. He was given the below instructions regarding adjustment of his medications for the procedure. If by chance he is iron deficient and/or the celiac disease labs are positive, I would then recommend an upper endoscopy on the same day as the colonoscopy. Deborah was comfortable with this plan. Thank you again for allowing me to participate in Deborah's care. I shall continue to keep you advised of his progress.. Plan Of Treatment Pending Test Test Name Order Date COLONOSCOPY 10/10/2024 IRON + IBC (FE) 10/10/2024 VITAMIN B12 AND FOLATE 10/10/2024 CBC w DIFF 10/10/2024 Celiac Panel 10 10/10/2024 Next Appt Details Provider Name:John Zhou , 02/04/2025 07:30:00 AM, [address] [place] [address] , [place], [place], [phone], Insurance Providers Payer Name Payer Address Payer Phone Subscriber Number Group Number Insured Name Patient Relationship to Insured Coverage Start Date Coverage End Date [facility] [address] [address] [place], [place] [id number] DEBORAH DAVILA Self - patient is the insured Medical (General) History Medical History History ICD Code [place] 2016- stent in heart-Dr. Gupta; n eg cardiac cath in 2022 HTN Hyperlipidemia Asthma Denies CVA or Renal disease NIDDM
[2025-02-02 14:23] VITALS: BMI 29.5
--- NOTE | 2025-02-03 08:33 | HO.ANESPROP2 ---
Documented by User: Maureen Wells NP 02/03/25 08:35 HPI - Anesthesia Eval Consult details Narrative: 64yo M for Colonoscopy Follows [facility] Card[facility] for HTN, HLD, CAD with LAD stent 2015. Last office visit 04/2024 post nml cath - stable for 1 year f/u. [facility] Active Problems Active Problems: All Active Problems Benign paroxysmal positional vertigo (Acute) Dizziness (Acute) Abnormal stress ECG (Acute) Stable angina (Acute) Type 2 diabetes mellitus with hyperlipidemia (Acute) Asthma (Acute) Fatigue (Acute) Hypertension (Acute) Hyperlipidemia (Acute) Diabetes (Acute) Neck pain (Acute) Hx of cardiac cath (Acute) History of coronary artery stent placement (Acute) Obesity (Acute) CAD (coronary atherosclerotic disease) (Acute) Coronary artery disease (CAD) excluded (Acute) Past Medical History Medical History Diabetes HTN (hypertension) Allergies Elevated cholesterol Myocardial infarction Obesity CAD (coronary atherosclerotic disease) Coronary artery disease (CAD) excluded Family History Family History Mother No problems noted. Father No problems noted. Surgical History Surgical History Hx of cardiac cath History of coronary artery stent placement Social History Social History Housing: House Alcohol intake: never Patient Tobacco Use Status: Never used Tobacco Tobacco use type: Cigarette e-Cigarette/Vaping Use: Never Used Second Hand Smoke Exposure: No Use of substances other than those prescribed or required for medical reasons: No Are you DNR?: No Advance Directives: No Advance Directives Information Provided: Yes service: No Current occupational status: employed Cognitive needs: No Hearing needs: No Vision needs: Yes (Glasses) Meds Allergies Allergy/AdvReac Type Severity Reaction Status Date / Time latex Allergy Rash Verified 02/04/25 11:17 Home Medications ?Medication ?Instructions ?Recorded ?Confirmed ?Last Taken ?Type metformin 500 mg tablet 500 mg PO BID 02/02/25 02/04/25 Unknown History budesonide-formoterol HFA 160 2 puff inhalation BID PRN Allergy 02/04/25 02/04/25 Unknown History mcg-4.5 mcg/actuation aerosol Symptoms inhaler (Symbicort) Exam Height,Weight and Vital Signs: Height 5 ft 10 in Weight 93.168 kg Narrative Narrative: exercise stress test done 02/25/2024 with exercise 10 minutes, [id number] shortness of breath, EKG changes noted. cardiac catheterization on 03/25/2024 showing patent stent and only minimal irregularities in the left circumflex and RCA. EKG 2023 Details: sinus bradycardia 47/min, anteroseptal infarct, QTc 385 msec. ECHO 2022 Conclusions: - Normal left ventricular cavity size. There is mildly increased left ventricular wall thickness. The left ventricular systolic function is low normal. The visually estimated ejection fraction is between 50-55%. - The apex segment is akinetic. - Normal right ventricular cavity size and systolic function. - The left atrium is mildly dilated. Assessment and Plan Assessment Anesthesia Assessment: Chart Reviewed Documented by User: Jp Felix MD 02/04/25 11:17 [facility] Past Medical History Medical History Diabetes HTN (hypertension) Allergies Elevated cholesterol Myocardial infarction Obesity CAD (coronary atherosclerotic disease) Coronary artery disease (CAD) excluded Functional capacity: independent ambulation Family History Family History Mother No problems noted. Father No problems noted. Family history of problems with anesthesia: No Surgical History Surgical History Hx of cardiac cath History of coronary artery stent placement History of Problems with Anesthesia: No Social History Social History Housing: House Alcohol intake: never Patient Tobacco Use Status: Never used Tobacco Tobacco use type: Cigarette e-Cigarette/Vaping Use: Never Used Second Hand Smoke Exposure: No Use of substances other than those prescribed or required for medical reasons: No Are you DNR?: No Advance Directives: No Advance Directives Information Provided: Yes service: No Current occupational status: employed Cognitive needs: No Hearing needs: No Vision needs: Yes (Glasses) Meds Allergies Allergy/AdvReac Type Severity Reaction Status Date / Time latex Allergy Rash Verified 02/04/25 11:17 Home Medications ?Medication ?Instructions ?Recorded ?Confirmed ?Last Taken ?Type metformin 500 mg tablet 500 mg PO BID 02/02/25 02/04/25 Unknown History budesonide-formoterol HFA 160 2 puff inhalation BID PRN Allergy 02/04/25 02/04/25 Unknown History mcg-4.5 mcg/actuation aerosol Symptoms inhaler (Symbicort) Exam Exam Date and Time: 02/04/2025 Airway Mallampati Class: II TM Dist: >3cm Neck ROM: Full Loose/Missing/Broken Teeth: No Heart: rrr Lungs: cta Other: normal Assessment and Plan Assessment Anesthesia Assessment: Anesthesia Plan Discussed Final Anesthetic Review Family History of Problems with Anesthesia: No History of Problems with Anesthesia: No NPO: Yes ASA Class: II and III Final Preanesthetic Review: No Changes in Pt Med Stat, Meds/Allgs Chart Reviewed, Consent Obtained/Reviewed and Anes Risks/Benef Reviewed Patient Risk: Intermediate Procedure Risk: Low Anesthetic Plan Anesthetic Plan: MAC: Disposition: Standard PACU
[2025-02-04 09:07] VITALS: BMI 28.7
[2025-02-04 09:09] VITALS: BP 137/59; PULSE 44; RESP 16; TEMP 35.9; O2SAT 99
[2025-02-04] MEDS: Lactated Ringers 1,000 ML 100 ML IVCONT (09:36)
[2025-02-04 09:43] LABS: Glucose, Whole Blood 94 mg/dL (60-115)
--- NOTE | 2025-02-04 10:33 | PC.NURSE ---
1015am--anesthesia made aware of pt's hr down do 41 at times, mostly in the 40's
[2025-02-04 12:20] VITALS: BP 97/42; PULSE 79; RESP 16; TEMP 36.1; O2SAT 100
--- NOTE | 2025-02-04 12:24 | PM.OP ---
Brief Operative Note Date of Service: 02/04/25 Pre-op diagnosis: Screening Post-op diagnosis: other (Rectal polyp) Procedure: Colonoscopy to the cecum with hot snare polypectomy x 1 and placement of 2 Resolution clips Surgeon: John Zhou MD Anesthesia: MAC Was an Shipping And Receiving Operator used for this Procedure?: No Estimated blood loss (mL): 0 Pathology: other (A. Distal rectal polyp) Condition: stable Disposition: PACU
[2025-02-04 12:25] VITALS: BP 111/46; PULSE 53; RESP 13; O2SAT 96
[2025-02-04 12:35] VITALS: BP 117/68; PULSE 55; RESP 14; TEMP 36.1; O2SAT 99
--- NOTE | 2025-02-04 23:00 | OP_ITS ---
DATE OF SERVICE: 02/04/2025 SURGEON: John Zhou MD INDICATIONS: The patient presents for evaluation of colorectal cancer screening. Full consent has been obtained from him for this, including risks of bleeding and perforation. PREOPERATIVE DIAGNOSIS: Colorectal cancer screening. POSTOPERATIVE DIAGNOSIS: PROCEDURE PERFORMED: Colonoscopy to the cecum with hot snare polypectomy and placement of 2 resolution clips on distal rectal polypectomy site. ESTIMATED BLOOD LOSS: COMPLICATIONS: ANESTHESIA: Medication used, monitored anesthesia care. ASSISTANTS: SPECIMENS: POSTOPERATIVE DIAGNOSES: Colorectal cancer screening, distal rectal polyp, diverticulosis, and internal hemorrhoids. DESCRIPTION OF PROCEDURE: The patient was placed in the left lateral decubitus position. The digital rectal exam revealed no abnormalities. The Olympus video pediatric colonoscope was entered into the rectum and advanced easily to the cecum. Once in the cecum, I did identify normal-appearing cecal pouch with appendiceal orifice and a normal-appearing ileocecal valve. The entire cecum and ileocecal valve appeared normal. The scope was then slowly withdrawn assessing all mucosal surfaces carefully. Preparation was excellent. There was a mild amount of sigmoid diverticulosis. I did not visualize any sign of colitis nor angiodysplasia. The only polyp I visualized was in the distal rectum, seen in the retroflexed position. This was just above the dentate line. It was approximately 10 to 12 mm in diameter and removed by hot snare polypectomy. The polypectomy site appeared clean, without any sign of residual polyp nor bleeding. The polyp was recovered by suction. Given the fact that he has to go back on aspirin, I did place 2 resolution clips onto the polypectomy site with good deployment and good hemostasis. The remainder of the rectum appeared normal. The scope was straightened and withdrawn from the patient. He tolerated the procedure well and was returned to recovery area in stable condition. IMPRESSION: 1. Distal rectal polyp. 2. Diverticulosis. 3. Internal hemorrhoids. PLAN: The results of the Pathology will be checked. If this is a tubular adenoma, I would recommend a followup coloscopy in 5 years. If it is only hyperplastic, then he would see me in 10 years for a followup colonoscopy. He was advised to resume his aspirin within 48 hours. He was advised not to use any NSAIDs for 1 week. He was advised to use a Colace once or twice a day for a week to keep the bowel movements soft and to avoid straining due to the distal rectal polypectomy and placement of the clips. MD CHICHO Hyde/PARUL / [phone] [id number]
== END 2025-02-04 13:10 | disposition home or self-care (01) ==
LOC: HO.SSS 13:09
PROVIDERS: Visit Provider Internal Medicine
PROC: 0DJD8ZZ Inspection of Lower Intestinal Tract, Via Natural or Artificial Opening Endoscopic (ICD-10-PCS; CPT 45378; principal; 2025-02-04 09:30)
DX: Z12.11 Encounter for screening for malignant neoplasm of colon (principal); K51.40 Inflammatory polyps of colon without complications; K63.5 Polyp of colon; K57.30 Diverticulosis of large intestine without perforation or abscess without bleeding; K64.8 Other hemorrhoids; E11.9 Type 2 diabetes mellitus without complications; I10 Essential (primary) hypertension; E78.5 Hyperlipidemia, unspecified; D64.9 Anemia, unspecified; Z79.84 Long term (current) use of oral hypoglycemic drugs; Z79.82 Long term (current) use of aspirin; Z79.02 Long term (current) use of antithrombotics/antiplatelets
CPT/HCPCS: 45385; 82947; 88305; J2003; J2704; J3010

== ENCOUNTER 2025-02-09 10:00 | Outpatient (AMB) | payer OTHER, SELFPAY ==
--- OUTSIDE RECORDS SUMMARY | 2025-02-04 09:30 | XMS_ITS ---
Author Organization [facility] Address [address] [place] [address] Care Team Providers Care Log Handling Equipment Operator Name Role Phone Pérez Barbour N.P. Primary Care Provider UnaJohn Heath [phone] REASON FOR VISIT screening Encounters Encounter Location Date Provider Diagnosis [facility] [address] [facility] [place] [phone] 02/04/2025 John Zhou Plan Of Treatment No Information Progress Notes * BERTHA DAVILARDOB:1960 ( 64 yo M)Acc No.[id number]:02/04/2025 COLON WITH MAC Patient: DEBORAH ARRIETA Provider: Yvonne Zhou MD :1960 A ge:64 Y S ex:Male Date:02/04/2025 Address:[address] [place] [address] [address] [facility] Pcp:Pérez Barbour N.P. Subjective: * Chief Complaints: [...] Date: 02/04/2025 Generated for Sara adames/Niyah/eTransmitting on: 02/09/2025 10:36 AM EDT
--- NOTE | 2025-02-09 10:18 | A.OFFVIS_ITS ---
Vital Signs 02/09/25 10:19 Height 5 ft 10 in Weight 201 lb 15.095 oz BMI 29.0 BP 114/64 Blood Pressure Location Lt brachial Position Sitting Pulse 53 Pulse Source Monitor Intake Visit Reasons: 1yr f/up- [place] going out of state Behavioral Services Tech Required: No Accompanied by: Self / Same As Patient Allergies latex Allergy (Verified 02/04/25 11:17) Rash Medication List - Last Reconciled 02/09/25 by Marlon Gupta MD aspirin (Adult Low Dose Aspirin) 81 mg PO DAILY 90 days atorvastatin 80 mg PO DAILY bisoprolol fumarate 5 mg PO DAILY 90 days budesonide-formoterol 160-4.5 mcg/actuation (Symbicort) 2 puffs inhalation BID PRN candesartan 16 mg PO DAILY flash glucose scanning reader ([employer]tech Software[employer] Teena 2 [place]) As directed flash glucose sensor (FreeStyle Teena 2 Sensor kit) As directed metformin 500 mg PO BID nitroglycerin 0.4 mg sublingual Q5M PRN spironolactone 25 mg PO DAILY HPI Comments Details: Pleasant 64-year-old gentleman who is here for f/u. In 2016 while he was in [place] he had chest pain and was taken for cardiac catheterization. He said he was initially given streptokinase but continued to have chest pain and was taken emergently for cardiac catheterization and had stent placed to the left anterior descending artery. We do not have exact details of the stent size and location of the stent. He said his ejection fraction at that time was 50% he was told that the cardiac apex does not move well. He since then has been doing well. He has been active without any symptoms. He walks daily without exertional issues in particular no chest discomfort shortness of breath. He was started on Atacand, spironolactone and bisoprolol and has been regularly taking medications. He is on Lipitor 80 mg once a day. He returns for follow-up and is complaining of some upper back achiness. This happens when he does not get enough sleep and when he is working. He is asking whether Lipitor is the cause for that. I have reassured him that Lipitor is unlikely to be the reason for his backaches. 09/26/2023: He returns for follow-up. He is saying that he is walking 2 times a week and has no exertional complaints. He is planning to start swimming. He has been getting yearly stress test in [place] and last 1 was in June where he was able to exercise for 10 minutes on treadmill without any significant symptoms. He is complaining of some fatigue. He has slowed down somewhat during winter time but will be starting some exercise. 02/27/2024: He returns for follow-up. On last visit he was complaining of fatigue and shortness of breath and we did stress testing for him. He underwent exercise stress test where he was able to exercise for 10 minutes and has shortness of breath. No chest discomfort. He had diffuse ST depressions on the EKG. In recovery the EKG improved. He is denying any chest discomfort but does get shortness of breath with activities. 02/09/2025: He is here for follow-up. He has been active in [place] and does walks on uses his exercise bike. He is saying that he will be starting swimming too. He had blood workup done recently which showed LDL cholesterol of 65. Total cholesterol was 107, triglycerides 58 and HDL 31. He is currently taking atorvastatin 80 mg daily. He is denying any significant symptoms. [facility] Medical History Diabetes HTN (hypertension) Allergies Elevated cholesterol Myocardial infarction Obesity CAD (coronary atherosclerotic disease) Coronary artery disease (CAD) excluded Surgical History Hx of cardiac cath History of coronary artery stent placement Family History Mother No problems noted. Father No problems noted. Social History Housing: House Alcohol intake: never Patient Tobacco Use Status: Never used Tobacco Tobacco use type: Cigarette e-Cigarette/Vaping Use: Never Used Second Hand Smoke Exposure: No service: No Current occupational status: employed Cognitive needs: No Hearing needs: No Vision needs: Yes (Glasses) Review of Systems Const Denies chills, Denies fatigue, Denies fever(s), Denies frequent falls, Denies weakness, Denies weight gain and Denies weight loss ENT Denies dizziness Card Denies chest pain, Denies leg edema, Denies lightheadedness, Denies palpitations, Denies dyspnea and Denies dyspnea on exertion Resp Denies cough, Denies dyspnea and Denies dyspnea on exertion GI Denies hematochezia Musc Denies abnormal gait, Denies muscle weakness, Denies numbness, Denies radiating pain into limb and Denies tingling Neuro Denies abnormal gait, Denies dizziness, Denies frequent falls, Denies numbness, Denies tingling and Denies weakness Endo Denies fatigue and Denies palpitations Physical Exam Vital Signs: Last Vital Signs Pulse 53 02/09/25 10:19 BP 114/64 02/09/25 10:19 BMI result Body Mass Index 29.0 GENERAL APPEARANCE: in no acute distress. NECK/THYROID: no carotid bruit, no jugular venous distention. SKIN: no suspicious lesions, warm and dry. HEART: no murmurs, regular rate and rhythm, S1, S2 normal. Bradycardic. LUNGS: clear to auscultation bilaterally. ABDOMEN: normal, bowel sounds present, soft, nontender, nondistended. EXTREMITIES: no clubbing, cyanosis, or edema. PERIPHERAL PULSES: equal. NEUROLOGIC: nonfocal, alert and oriented. PSYCH: mood/affect full range. Office Procedures EKG Details: Sinus bradycardia 53 beats per minute, normal axis, anteroseptal infarct, QTC 401 milliseconds. [id number], Complete Assessment & Plan Assessment & Plan (1) Hypertension: Code(s): I10 - Essential (primary) hypertension Category: Medical Qualifiers: Hypertension type: unspecified Qualified Code(s): I10 - Essential (primary) hypertension (2) Stable angina: Code(s): I20.89 - Other forms of angina pectoris Category: Medical (3) Abnormal stress ECG: Code(s): R94.39 - Abnormal result of other cardiovascular function study Category: Medical Plan Pleasant 64 year gentleman who is here for follow-up. He has history of anterior wall VT while he was in [place] few years ago. At that time he had short area of sharp left-sided chest discomfort and went to the emergency department where he was given streptokinase and eventually was taken for cardiac catheterization and had PCI performed. Details of this angioplasty not available. He is complaining of some dyspnea with activities and underwent stress testing where ECG was abnormal. After discussion he was taken for cardiac catheterization. We noticed patent LAD stent and no significant coronary disease. Off note it was quite difficult to engage the left main from radial and in future if he requires any angiography it should be done from femoral approach. Clinically has been stable. Blood pressure well controlled. Tolerating medications well. His LDL cholesterol is 65. I have told him that his target is below 55. He wishes to do some exercise and repeat the test in few months. If LDL continues to be elevated then we can start him on ezetimibe 10 mg daily. Thank you for allowing me to participate in the care of your patient. Please feel free to contact me if you have any questions. Coding Level of Care Code Est Pt Level 4 (69475) Diagnoses Hypertension, unspecified type I10 Hypertension type: unspecified Stable angina I20.89 Abnormal stress ECG R94.39 CPT Codes EKG - CPT: 40064-[id number], Complete ([id number])
[2025-02-09 10:19] VITALS: BP 114/64; PULSE 53; BMI 29.0
== END 2025-02-09 10:50 | disposition home or self-care (01) ==
LOC: HO.HCS 10:00
PROVIDERS: Visit Provider Internal Medicine Cardiovascular Disease
DX: I10 Essential (primary) hypertension (principal); I20.89 Other forms of angina pectoris; R94.39 Abnormal result of other cardiovascular function study
CPT/HCPCS: 93010; 99214

== ENCOUNTER → 2025-02-09 10:00 | Outpatient (BNVA) | payer OTHER, SELFPAY | PROVIDERS: Visit Provider Internal Medicine Cardiovascular Disease | DX: I10 Essential (primary) hypertension (principal); E78.00 Pure hypercholesterolemia, unspecified; R94.39 Abnormal result of other cardiovascular function study; Z98.890 Other specified postprocedural states; M54.2 Cervicalgia; E11.9 Type 2 diabetes mellitus without complications; E78.5 Hyperlipidemia, unspecified; R53.82 Chronic fatigue, unspecified; H81.10 Benign paroxysmal vertigo, unspecified ear; I25.118 Atherosclerotic heart disease of native coronary artery with other forms of angina pectoris | CPT/HCPCS: 93005; 99212 ==

== ENCOUNTER 2025-02-09 13:27 | Outpatient (AMB) | payer OTHER, SELFPAY ==
--- NOTE | 2025-02-09 13:30 | A.OFFPC_ITS ---
Vital Signs 02/09/25 13:33 Height 5 ft 10 in Weight 201 lb BMI 28.8 BP 120/64 Blood Pressure Location Lt brachial Position Sitting Respiration 18 Pulse 90 Pulse Source Pulse Oximeter Temp 98 F Temp Source Temporal Artery Scan Pulse Oximetry (%) 97 Oxygen Delivery Method Room Air Intake Visit Reasons: CAD/DM/ASTHMA Financial Risk Manager Required: No Accompanied by: Self / Same As Patient Allergies latex Allergy (Verified 02/09/25 13:51) Rash Medication List - Last Reconciled 02/09/25 by CALDERON Nowak aspirin (Adult Low Dose Aspirin) 81 mg PO DAILY 90 days atorvastatin 80 mg PO DAILY bisoprolol fumarate 5 mg PO DAILY 90 days budesonide-formoterol 160-4.5 mcg/actuation (Symbicort) 2 puffs inhalation BID PRN candesartan 16 mg PO DAILY flash glucose scanning reader ([employer] Teena 2 [place]) As directed flash glucose sensor ([employer] Teena 2 Sensor kit) As directed metformin 500 mg PO BID nitroglycerin 0.4 mg sublingual Q5M PRN spironolactone 25 mg PO DAILY Tobacco use date assessed: 02/09/25 Dental Screening Dental Screen Date: 02/09/25 Did you have a dental visit in the last 12 months?: No Did you have a dental problem in the last 6 months where you did not have access to dental care?: No Was dental information given to patient?: No HPI CAD/DM/ASTHMA HPI Details The patient is a 64-year-old male presenting for follow up appointment. He is here with neck pain and earwax impaction. The neck pain has been persistent, exacerbated by poor posture and prolonged sit ting, particularly when using a laptop. The patient has tried various interventions, including physical therapy, chiropractic sessions, he was encouraged to try self-massage with Biofreeze, which have provided some relief in other patients. The pain is described as being located at the back of the neck, worsening with certain postures, and alleviated by maintaining a natural alignment. The patient also reports itchy, discomfort ears. Excessive cerumen build up was noted. He has been advised to use ear drops to soften the wax before a scheduled ear flushing procedure. Additionally, the patient has a history of anemia, which is currently stable. The anemia is not attributed to any obvious bleeding, and iron levels are low normal. The patient is advised to monitor iron intake through diet and possibly supplements if future tests indicate deficiency. [facility] Medical History Diabetes HTN (hypertension) Allergies Elevated cholesterol Myocardial infarction Obesity CAD (coronary atherosclerotic disease) Coronary artery disease (CAD) excluded Surgical History Hx of cardiac cath History of coronary artery stent placement Family History Mother No problems noted. Father No problems noted. Social History Housing: House Alcohol intake: never Patient Tobacco Use Status: Never used Tobacco Tobacco use type: Cigarette e-Cigarette/Vaping Use: Never Used Second Hand Smoke Exposure: No service: No Current occupational status: employed Cognitive needs: No Hearing needs: No Vision needs: Yes (Glasses) Questionnaire PHQ-9 Over the last 2 weeks, how often have you been bothered by any of the following problems? 1. Little interest or pleasure in doing things: not at all 2. Feeling down, depressed, or hopeless: not at all 3. Trouble falling or staying asleep, or sleeping too much: several days 4. Feeling tired or having little energy: several days 5. Poor appetite or overeating: not at all 6. Feeling bad about yourself - or that you are a failure or have let yourself or your family down: not at all 7. Trouble concentrating on things, such as reading the newspaper or watching television: not at all 8. Moving or speaking so slowly that other people could have noticed. Or the opposite - being so fidgety or restless that you have been moving around a lot more than usual: not at all 9. Thoughts that you would be better off or of hurting yourself in some way: not at all Total score: 2 Depression Screening Interpretation: Negative Depression Screening Done: Yes Source: Developed by Drs. John Vital, Sindy Saxena, Faustino Sorto and colleagues, with an educational chuy from [employer]. Thrive Questionnaire Date Thrive assessed: 02/09/25 I am a: Patient What is your living situation today?: I have a steady place to live Within the past 12 months, did the food you bought not last and you didn't have the money to get more?: Never true Within the past 12 months, did you worry whether your food would run out before you got money to buy more?: Never true Do you have trouble paying for medicines?: No Do you have trouble getting transportation to medical appointments?: No Do you have trouble paying your heating and electricity bill?: No Do you have trouble taking care of your child, family member or friend?: No Do you have trouble with day-to-day activities such as bathing, preparing meals, shopping, managing finances, etc.?: No Are you currently unemployed and looking for a job?: No Are you interested in more education?: No Please select the resources that you would like help with: None Currently or been in a relationship where the following occur: No concerns reported THRIVE Score: 0 AUDIT C Alcohol Use Questionnaire (AUDIT-C) 1. How often do you have a drink containing alcohol?: Never 3. How often do you have six or more drinks on one occasion?: Never Total Score: 0 MARLENY-7 AMB Questionnaire MARLENY-7 Date MARLENY - 7 assessed: 02/09/25 Feeling nervous, anxious, or on edge: 0 = Not at all Not being able to stop or control worryin = Not at all Worrying too much about different things: 1 = Several days Trouble relaxin = Not at all Being so restless that it is hard to sit still: 0 = Not at all Becoming easily annoyed or irritable: 0 = Not at all Feeling afraid as if something awful might happen: 1 = Several days Total MARLENY-7 score (0-4 normal; 5-9 mild; 10-14 moderate; 15-21 severe): 2 Source: Developed by Drs. John Vital, Sindy Saxena, Faustino Sorto and colleagues, with an educational chuy from [employer]. Review of Systems Const Denies headache(s) Eyes Denies loss of vision ENT Denies vertigo, Denies dizziness, Reports otalgia (mild discomfort/itchiness), Denies headache(s), Reports neck pain and Denies sore throat Card Denies chest pain, Denies leg edema and Denies lightheadedness Resp Denies cough, Denies hemoptysis and Denies wheezing GI Denies abdominal pain, Denies melena, Denies constipation, Denies diarrhea and Denies vomiting Denies dysuria, Denies urinary frequency and Denies urinary urgency Musc Denies arthralgias, Denies joint swelling, Reports neck pain, Denies numbness and Denies tingling Neuro Denies Abnormal speech present, Denies behavioral changes, Denies vertigo, Denies dizziness, Denies headache(s), Denies loss of vision, Denies memory loss, Denies numbness and Denies tingling Psych Denies anxiety, Denies behavioral changes, Denies depression, Denies memory loss and Denies panic attacks Beny/Lymph Denies easy bleeding and Denies easy bruising Aller/Immun Denies wheezing Physical exam (Primary Care) Vital Signs: Last Vital Signs Temp 98 F 02/09/25 13:33 Pulse 90 02/09/25 13:33 Resp 18 02/09/25 13:33 BP 120/64 02/09/25 13:33 Pulse Ox 97 02/09/25 13:33 Oxygen Delivery Method Room Air 02/09/25 13:33 BMI result Body Mass Index 28.8 Tobacco/Smoking Status: Tobacco use Status Tobacco use date assessed 02/09/25 02/09/25 13:38 Patient Tobacco Use Status Never used Tobacco 02/09/25 13:30 Tobacco use type Cigarette 02/09/25 13:30 e-Cigarette/Vaping Use Never Used 02/09/25 13:30 PHQ-9: PHQ-9 Score PHQ-9: Total score 2 02/09/25 14:05 Depression Screening Interpretation: Negative Thrive Assessment: Date of Thrive Assessment Date Thrive assessed 02/09/25 02/09/25 13:38 Currently or been in a relationship where the following occur: No concerns reported Const General: healthy appearing, no acute distress, alert and awake Nutritional Appearance: well nourished Orientation/consciousness: oriented to person, oriented to place and oriented to time HENMT Ears: Abnormal EAC present excessive cerumen bilateral General nose exam: Normal external nose present Eyes Conjunctivae: conjunctivae normal Sclerae: sclerae normal Pupils: Equal, round and reactive pupils present Neck Neck: Yes no lymphadenopathy and Yes no JVD Thyroid: Thyroid normal Carotids: no bruits Resp Effort & Inspection: normal respiratory effort and not tachypneic Auscultation: no crackles, no rales, no rhonchi and no wheezes Cardio Rate: regular rate Rhythm: regular rhythm Heart sounds: S1 normal heart sound present, S2 normal heart sound present, no murmurs and normal S1 and S2 GI Palpation (GI): Soft to palpation, nontender, no hepatomegaly and no splenomegaly Auscultation: normal bowel sounds General: Yes no CVA tenderness Back/Spine/Pelvis Back: no CVA tenderness Skin General skin exam: no rashes or lesions noted and dry skin Neuro General: oriented to person, oriented to place and oriented to time Cranial nerves: Yes Equal, round and reactive pupils present Speech: No Abnormal speech present Gait exam (Neuro): Normal gait present Motor exam (neuro): no tremor noted Extrem Right upper extremity: full ROM Left upper extremity: full ROM Right lower extremity: full ROM; no edema Left lower extremity: full ROM; no edema Psych Mental Status: mental status grossly normal Speech and movement: Normal speech and movement present Affect: normal affect Attitude: cooperative Thought process: Normal thought process present Results Reviewed Results Reviewed: Laboratory Tests 02/03/25 02/03/25 12:35 12:40 WBC 8.4 RBC 5.14 Hgb 13.3 L Hct 41.2 L MCV 80.2 MCH 25.9 L MCHC 32.3 RDW 14.5 Plt Count 224 MPV 11.5 Immature Gran % (Auto) 0.4 Neut % (Auto) 54.5 Sodium 138 Potassium 4.1 Chloride 108 Carbon Dioxide 24 Anion Gap 10 L BUN 15 Creatinine 0.94 Estimated GFR > 60 Fasting Glucose 96 Hemoglobin A1c % 6.4 H Calcium 8.8 D Iron 51 TIBC 258 % Saturation 20 Unsat Iron Binding 207 Total Bilirubin 0.4 AST 28 ALT 27 Alkaline Phosphatase 93 B-Natriuretic Peptide 80 Total Protein 7.2 Albumin 4.3 Triglycerides 58 Cholesterol 107 LDL Cholesterol, Calc 65 HDL Cholesterol 31 L Total PSA 1.15 25-OH Vitamin D Total 34.6 TSH 2.86 Total Testosterone 291 Fr Testosterone Dialys 42.5 Urine Color Yellow Urine Appearance Clear Urine pH 6.5 Ur Specific [place] 1.015 Urine Protein Negative Urine Glucose (UA) Negative Urine Ketones Negative Urine Blood Negative Urine Nitrite Negative Ur Leukocyte Esterase Negative Coding Level of Care Code Est Pt Level 4 (58650) Diagnoses Hx of cardiac cath Z98.890 Atherosclerosis of coronary artery without angina pectoris, unspecified vessel or lesion type, unspecified whether [place] or transplanted heart I25.10 Coronary Disease-Associated Artery/Lesion type: unspecified vessel or lesion type [place] vs. transplanted heart: unspecified whether [place] or transplanted heart Associated angina: without angina Neck pain M54.2 Type 2 diabetes mellitus without complication, without long-term current use of insulin E11.9 Diabetes mellitus type: type 2 Diabetes mellitus roasterman insulin use: without usp use Diabetes mellitus complication status: without complication Hyperlipidemia, unspecified hyperlipidemia type E78.5 Hyperlipidemia type: unspecified Hypertension, unspecified type I10 Hypertension type: unspecified Chronic fatigue R53.82 Fatigue type: chronic, unspecified Benign paroxysmal positional vertigo, unspecified laterality H81.10 Laterality: unspecified laterality Time Spent (min) 41 Assessment & Plan Assessment & Plan (1) Hx of cardiac cath: Comment: 03/25/2024, left main normal, lad patent stent, left circumflex and RCA minimal irregularities Code(s): Z98.890 - Other specified postprocedural states Category: Surgical Plan: * Stable: The patient had DC while he was in [place] in 2016. He was first given streptokinase but continue to have chest pain. He had a catherization with stent placement in the LAD. He is being monitored by [facility] (Marlon Betancourt). He has been stable without any angnal s/sx. (2) CAD (coronary atherosclerotic disease): Code(s): I25.10 - Atherosclerotic heart disease of [place] coronary artery without angina pectoris Category: Medical Qualifiers: Coronary Disease-Associated Artery/Lesion type: unspecified vessel or lesion type [place] vs. transplanted heart: unspecified whether [place] or transplanted heart Associated angina: without angina Qualified Code(s): I25.10 - Atherosclerotic heart disease of [place] coronary artery without angina pectoris Plan: The patient does complaints of some tiredness and shortness of breath with exertion that is short-lived. Per chart review, he had similar complaints in the past. Cardiolites stress test done in 03/2023 showed gated LVEF 59% during stress and 58% during rest and the patient was diagnosed with Stable angina. HR is bradycardic with optimal blood pressure. Continue Aspirin 81 mg daily, atorvastatin 80 md daily, bisoprolol furmarate 5 mg daily, candesartan 16 mg daily and spironolactone 25 mg daily. Reinforced low-sodium diet follow up with Cardiology as scheduled (3) Neck pain: Comment: 20 min reviewing chart eval pt and documenting; will refer to PSP Code(s): M54.2 - Cervicalgia Category: Medical Plan: Patient complains of chronic neck pain. Cervical x-ray done in 2021 showed left bridging osteophytes at C2-C3, C4-C5, C5-C6, and C6-C7 disc levels. There is mild tilt of the head to the right side. PT referral placed (4) Diabetes: Code(s): E11.9 - Type 2 diabetes mellitus without complications Category: Medical Qualifiers: Diabetes mellitus type: type 2 Diabetes mellitus roasterman insulin use: without usp use Diabetes mellitus complication status: without complication Qualified Code(s): E11.9 - Type 2 diabetes mellitus without complications Plan: A1c 6.4% it was 6.1% on his previous labs. Goal is less than 7% Reinforced low sugar/carbohydrate diet and activity as tolerated Continue metformin 500 mg b.i.d. (5) Hyperlipidemia: Code(s): E78.5 - Hyperlipidemia, unspecified Category: Medical Qualifiers: Hyperlipidemia type: unspecified Qualified Code(s): E78.5 - Hyperlipidemia, unspecified Plan: Triglycerides 58, total cholesterol 107, LDL 65, HDL 31 Encouraged low-cholesterol diet Continue fish oil Continue atorvastatin 80 mg daily We will recheck lipid panel in six-month (6) Hypertension: Code(s): I10 - Essential (primary) hypertension Category: Medical Qualifiers: Hypertension type: unspecified Qualified Code(s): I10 - Essential (primary) hypertension Plan: Blood pressure within goal in office Reinforced low sodium diet Continue bisoprolol 5 mg, candesartan 16 mg daily, and spironolactone 25 mg daily (7) Fatigue: Code(s): R53.83 - Other fatigue Category: Medical Qualifiers: Fatigue type: chronic, unspecified Qualified Code(s): R53.82 - Chronic fatigue, unspecified Plan: Multifactorial. The patient is anemic, cardiac and respiratory disease. testosterone low normal, iron levels low normal, he continues to be anemic-but this has stabalized. Will continue to monitor. (8) Benign paroxysmal positional vertigo: Code(s): H81.10 - Benign paroxysmal vertigo, unspecified ear Category: Medical Qualifiers: Laterality: unspecified laterality Qualified Code(s): H81.10 - Benign paroxysmal vertigo, unspecified ear Plan: Patient c/o vertigo at his previous visit;PT eval ordered for vestibular therapy. Does not appear that this was completed; however, the patient the patient denies this today. Will continue to monitor. Orders: Orders Lipid Panel 6 Months E11.69 - Type 2 diabetes mellitus with other specified complication, E11.9 - Type 2 diabetes mellitus without complications, E78.5 - Hyperlipidemia, unspecified, I10 - Essential (primary) hypertension, I25.10 - Atherosclerotic heart disease of [place] coronary artery without angina pectoris, Z03.89 - Encounter for observation for other suspected diseases and conditions ruled out, Z95.5 - Presence of coronary angioplasty implant and graft UA CC w/rflx Micro + Cult 6 Months E11.69 - Type 2 diabetes mellitus with other specified complication, E11.9 - Type 2 diabetes mellitus without complications, E78.5 - Hyperlipidemia, unspecified, I10 - Essential (primary) hypertension, I25.10 - Atherosclerotic heart disease of [place] coronary artery without angina pectoris, Z03.89 - Encounter for observation for other suspected diseases and conditions ruled out, Z95.5 - Presence of coronary angioplasty implant and graft Vitamin D 25-OH Total 6 Months E11.69 - Type 2 diabetes mellitus with other specified complication, E11.9 - Type 2 diabetes mellitus without complications, E78.5 - Hyperlipidemia, unspecified, I10 - Essential (primary) hypertension, I25.10 - Atherosclerotic heart disease of [place] coronary artery without angina pectoris, Z03.89 - Encounter for observation for other suspected diseases and conditions ruled out, Z95.5 - Presence of coronary angioplasty implant and graft Vitamin B12 and Folate 6 Months E11.69 - Type 2 diabetes mellitus with other specified complication, E11.9 - Type 2 diabetes mellitus without complications, E78.5 - Hyperlipidemia, unspecified, I10 - Essential (primary) hypertension, I25.10 - Atherosclerotic heart disease of [place] coronary artery without angina pectoris, Z03.89 - Encounter for observation for other suspected diseases and conditions ruled out, Z95.5 - Presence of coronary angioplasty implant and graft PT Evaluation and Treatment Today M54.2 - Cervicalgia Complete Blood Count Auto Diff 6 Months E11.69 - Type 2 diabetes mellitus with other specified complication, E11.9 - Type 2 diabetes mellitus without complications, E78.5 - Hyperlipidemia, unspecified, I10 - Essential (primary) hypertension, I25.10 - Atherosclerotic heart disease of [place] coronary artery without angina pectoris, Z03.89 - Encounter for observation for other suspected diseases and conditions ruled out, Z95.5 - Presence of coronary angioplasty implant and graft Comprehensive [place]. Panel Fast 6 Months E11.69 - Type 2 diabetes mellitus with other specified complication, E11.9 - Type 2 diabetes mellitus without com plications, E78.5 - Hyperlipidemia, unspecified, I10 - Essential (primary) hypertension, I25.10 - Atherosclerotic heart disease of [place] coronary artery without angina pectoris, Z03.89 - Encounter for observation for other suspected diseases and conditions ruled out, Z95.5 - Presence of coronary angioplasty implant and graft TSH reflex Free T4 6 Months E11.69 - Type 2 diabetes mellitus with other specified complication, E11.9 - Type 2 diabetes mellitus without complications, E78.5 - Hyperlipidemia, unspecified, I10 - Essential (primary) hypertension, I25.10 - Atherosclerotic heart disease of [place] coronary artery without angina pectoris, Z03.89 - Encounter for observation for other suspected diseases and conditions ruled out, Z95.5 - Presence of coronary angioplasty implant and graft
[2025-02-09 13:33] VITALS: BP 120/64; PULSE 90; RESP 18; TEMP 36.6; O2SAT 97; BMI 28.8
== END 2025-02-09 14:18 | disposition home or self-care (01) ==
LOC: HO.HMCH 13:28
DX: Z98.890 Other specified postprocedural states (principal); I25.10 Atherosclerotic heart disease of native coronary artery without angina pectoris; M54.2 Cervicalgia; E11.9 Type 2 diabetes mellitus without complications; E78.5 Hyperlipidemia, unspecified; I10 Essential (primary) hypertension; R53.82 Chronic fatigue, unspecified; H81.10 Benign paroxysmal vertigo, unspecified ear

== ENCOUNTER 2025-02-16 14:41 | Outpatient (AMB) | payer OTHER, SELFPAY ==
--- OUTSIDE RECORDS SUMMARY | 2025-02-04 09:30 | XMS_ITS ---
Author Organization [facility] Address [address] [place] [address] Care Team Providers Care Emergency Crew Supervisor Name Role Phone Pérez Barbour N.P. Primary Care Provider UnaJohn Heath [phone] REASON FOR VISIT screening Encounters Encounter Location Date Provider Diagnosis [facility] Outpatient [address] [facility] [place] [id number] 02/04/2025 John Zhou Plan Of Treatment No Information Progress Notes * BERTHA DAVILARDOB:1960 ( 64 yo M)Acc No.[id number]:02/04/2025 COLON WITH MAC Patient: DEBORAH ARRIETA Provider: Yvonne Zhou MD :1960 A ge:64 Y S ex:Male Date:02/04/2025 Address:[address] [place] [address] [address] [facility] Pcp:Pérez Barbour N.P. Subjective: * Chief Complaints: * 1 . Screening. * Medical History: Objective: * Vitals: Assessment: Plan: * Treatment: * * The named appointment provid er may or may not be the originator of this progress note, and it is not deemed complete until electronically signed by the appointment provider. Sign off status: Pending * Provider: Yvonne Zhou MD Date: 02/04/2025 Generated for Sara adames/Niyah/eTransmitting on: 02/16/2025 03:21 PM EDT
[2025-02-16 15:29] VITALS: BP 104/58; PULSE 53; TEMP 36.5; O2SAT 97; BMI 29.0
--- NOTE | 2025-02-16 15:29 | AM.OFFWIN_ITS ---
Intake Vital Signs 02/16/25 15:29 Height 5 ft 10 in Weight 202 lb BMI 29.0 BP 104/58 L Blood Pressure Location Lt brachial Position Sitting Pulse 53 Pulse Source Pulse Oximeter Temp 97.7 F Temp Source Oral Pulse Oximetry (%) 97 Oxygen Delivery Method Room Air Intake Visit Reasons: EP-rt ear pain Intake Note: pt presents with right ear pain Patient Tobacco Use Status: Never used Tobacco Allergies latex Allergy (Verified 02/16/25 15:31) Rash Do you need a note to return to daycare/school/sports/work: No HPI HPI Comments History of Present Illness Details History of Present Illness - The patient is a 64-year-old male pres enting with an ear infection. - Reports of ear irritation and pain, wo rsened by touch, localized to one ear. - No associated symptoms such as sore th roat, fever, or congestion. - History of excessive earwax production and he picks it out at home - He denies fever, chills, CP, SOB, abd pain, n/v/d, PERALES, sore throat, cough, or congestion. - Has no discharge or bleeding from the ear - He denies hearing loss. - He denies sick contacts. Physical Exam General: Cooperative, healthy appearing, comfortable, no acute distress and well developed Orientation: Patient oriented x3 Limitations: No limitations Head: Normal to inspection Ears: Hearing grossly normal bilaterally. TTP of the right tragus. Erythema and swelling noted in the right canal on the left side. No discharge noted. TM is intact, not bulging. Nose: Normal external nose present Face and sinus: Normal facial exam Neck: Normal visual inspection and Yes full ROM Respiratory: Normal respiratory effort and able to speak in complete sentences. Clear to auscultation bilaterally Cardiovascular: Regular rate and rhythm. Normal S1 and S2 Skin: No rashes or lesions noted Patient was informed and verbally consented to the use of an ambient scribe for clinic note documentation during this visit. [facility] Medical History Diabetes HTN (hypertension) Allergies Elevated cholesterol Myocardial infarction Obesity CAD (coronary atherosclerotic disease) Coronary artery disease (CAD) excluded Surgical History Hx of cardiac cath History of coronary artery stent placement Family History Mother No problems noted. Father No problems noted. Social History Housing: House Alcohol intake: never Patient Tobacco Use Status: Never used Tobacco Tobacco use type: Cigarette e-Cigarette/Vaping Use: Never Used Second Hand Smoke Exposure: No service: No Current occupational status: employed Cognitive needs: No Hearing needs: No Vision needs: Yes (Glasses) Review of Systems Const All systems reviewed & are unremarkable except as noted in HPI and below Physical Exam Vital Signs: Last Vital Signs Temp 97.7 F 02/16/25 15:29 Pulse 53 02/16/25 15:29 BP 104/58 L 02/16/25 15:29 Pulse Ox 97 02/16/25 15:29 Oxygen Delivery Method Room Air 02/16/25 15:29 BMI result Body Mass Index 29.0 Assessment & Plan Assessment & Plan (1) Right ear pain: Code(s): H92.01 - Otalgia, right ear Plan Most likely OM vs OE vs cerumen impaction Plan - Prescribe Ciprodex ear drops for the ear infection, combining ciprofloxacin and a steroid for treatment. - Instruct the patient to collect the medication from the pharmacy. - avoid q-tips - tylenol or motrin as needed for pain Medications: New ciprofloxacin-dexamethasone 0.3-0.1 % 4 drps otic (ears) BID 7.5 mL 0RF 7 days Coding Level of Care Code Est Pt Level 3 (92924) Diagnoses Right ear pain H92.01
== END 2025-02-16 16:07 | disposition home or self-care (01) ==
PROVIDERS: Visit Provider Physician Assistant Medical
DX: H92.01 Otalgia, right ear (principal)

== ENCOUNTER → 2025-02-16 14:41 | Outpatient (BNVA) | payer OTHER, SELFPAY | PROVIDERS: Visit Provider Physician Assistant Medical | DX: H92.01 Otalgia, right ear (principal) | CPT/HCPCS: 99212 ==